=== PATIENT | male | born 1950 | race Caucasian/White ===

== ENCOUNTER 2021-08-09 09:44 | Emergency (ER) | payer OTHER ==
[~2021-08-09] VITALS: Ht 172.7 cm; Wt 104.3 kg
[2021-08-09 11:14] LABS: BASOPHILS ABSOLUTE AUTO 0.02 K/mm3 (0.00-0.23); BASOPHILS PERCENT AUTO 0 % (0-2); EOSINOPHILS PERCENT AUTO 0 % (0-6); Hematocrit 47.4 % (37.0-53.0); IMMATURE GRAN ABSOLUTE AUTO 0.02 K/mm3 (0.00-0.10); IMMATURE GRAN PERCENT AUTO 0 % (0-1); LYMPHOCYTES PERCENT AUTO 13 % (21-46); MONOCYTES ABSOLUTE AUTO 0.37 K/mm3 (0.16-1.47); MONOCYTES PERCENT AUTO 8 % (4-13); Mean Corpuscular HGB Conc 33.8 g/dL (31.5-36.5); Mean Corpuscular Volume 86 fL (80-100); Mean Platelet Volume 11.2 fL (9.1-12.4); NEUTROPHILS ABSOLUTE AUTO 3.55 K/mm3 (1.96-9.15); NEUTROPHILS PERCENT AUTO 78 % (41-73); Platelet Count 185 K/mm3 (150-400); RDW Coefficient Variation 13.2 % (11.7-14.2); RDW Standard Deviation 41.5 fL (35.1-46.3); Red Blood Cell Count 5.51 M/mm3 (4.30-5.90); White Blood Cell Count 4.56 K/mm3 (4.00-11.30)
[2021-08-09 11:20] LABS: SARS-Cov-2 (COVID-19) PCR, MMC POSITIVE (NEGATIVE)
[2021-08-09 11:38] LABS: Alanine Aminotransfer (ALT/SGP 29 U/L (12-78); Albumin, Blood 3.4 g/dL (3.4-5.0); Albumin/Globulin Ratio 0.9 (0.8-1.8); Alk Phos 71 U/L (50-136); Anion Gap 7 mmol/L (6-16); Aspartate Aminotrans (AST/SGOT 40 U/L (12-37); Bilirubin, Total 0.6 mg/dL (0.1-1.0); Blood Urea Nitrogen 21 mg/dL (8-24); Bun/Creatinine Ratio 16.8 (12.0-20.0); CO2, Blood 23 mmol/L (21-32); Calcium, Blood 8.9 mg/dL (8.5-10.1); Chloride, Blood 106 mmol/L (98-108); Creatinine, Blood 1.25 mg/dL (0.60-1.20); Globulin, Blood 3.9 g/dL (2.2-4.0); Glomerular Filtration Rate 57 (60-); Glucose, Blood 139 mg/dL (70-99); Potassium, Blood 4.9 mmol/L (3.5-5.5); Sodium, Blood 136 mmol/L (136-145); Total Protein, Blood 7.3 g/dL (6.4-8.2); Troponin I <0.015 ng/mL (0.000-0.040)
[2021-08-09] MEDS ORDERED: ONDA4ODT MM (12:43)
[2021-08-11] MEDS ORDERED: PRAV20 PO (23:31)
== END 2021-08-09 13:15 | disposition home or self-care (01) ==
LOC: ER 09:44
PROVIDERS: Physician Assistant
DX: U07.1 COVID-19 (principal); J44.9 Chronic obstructive pulmonary disease, unspecified; I25.10 Atherosclerotic heart disease of native coronary artery without angina pectoris; I10 Essential (primary) hypertension; Z87.891 Personal history of nicotine dependence
CPT/HCPCS: 36415; 71046; 80053; 84484; 85025; 93005; 93010; 96374; 99285-25; J2405; J7030; U0004

== ENCOUNTER 2021-08-11 15:04 | Inpatient (IN) | payer OTHER ==
[~2021-08-11] VITALS: Ht 172.7 cm; Wt 108.3 kg
[~2021-08-11 15:04] MED LIST: ONDA4ODT MM
[2021-08-11 16:14] LABS: BASOPHILS ABSOLUTE AUTO 0.01 K/mm3 (0.00-0.23); BASOPHILS PERCENT AUTO 0 % (0-2); EOSINOPHILS PERCENT AUTO 0 % (0-6); Hematocrit 43.7 % (37.0-53.0); Hemoglobin 14.8 g/dL (13.5-17.5); IMMATURE GRAN ABSOLUTE AUTO 0.02 K/mm3 (0.00-0.10); IMMATURE GRAN PERCENT AUTO 0 % (0-1); LYMPHOCYTES ABSOLUTE AUTO 0.37 K/mm3 (0.84-5.20); LYMPHOCYTES PERCENT AUTO 8 % (21-46); MONOCYTES PERCENT AUTO 7 % (4-13); Mean Corpuscular HGB 29.1 pg (26.0-34.0); Mean Corpuscular HGB Conc 33.9 g/dL (31.5-36.5); Mean Corpuscular Volume 86 fL (80-100); Mean Platelet Volume 11.1 fL (9.1-12.4); NEUTROPHILS ABSOLUTE AUTO 3.86 K/mm3 (1.96-9.15); NEUTROPHILS PERCENT AUTO 85 % (41-73); Platelet Count 191 K/mm3 (150-400); RDW Coefficient Variation 13.2 % (11.7-14.2); RDW Standard Deviation 41.3 fL (35.1-46.3); Red Blood Cell Count 5.08 M/mm3 (4.30-5.90); White Blood Cell Count 4.56 K/mm3 (4.00-11.30)
[2021-08-11 16:29] LABS: International Normalized Ratio 0.98; Prothrombin Time Results 10.3 Sec (9.7-11.5)
[2021-08-11 16:43] LABS: Alanine Aminotransfer (ALT/SGP 23 U/L (12-78); Albumin, Blood 2.8 g/dL (3.4-5.0); Albumin/Globulin Ratio 0.8 (0.8-1.8); Alk Phos 72 U/L (50-136); Anion Gap 8 mmol/L (6-16); Aspartate Aminotrans (AST/SGOT 38 U/L (12-37); Bilirubin, Total 0.5 mg/dL (0.1-1.0); Blood Urea Nitrogen 24 mg/dL (8-24); Bun/Creatinine Ratio 20.9 (12.0-20.0); CO2, Blood 23 mmol/L (21-32); Calcium, Blood 8.6 mg/dL (8.5-10.1); Chloride, Blood 106 mmol/L (98-108); Creatinine, Blood 1.15 mg/dL (0.60-1.20); Globulin, Blood 3.7 g/dL (2.2-4.0); Glomerular Filtration Rate >60 (60-); Glucose, Blood 145 mg/dL (70-99); Potassium, Blood 4.4 mmol/L (3.5-5.5); Sodium, Blood 137 mmol/L (136-145); Total Protein, Blood 6.5 g/dL (6.4-8.2); Troponin I <0.015 ng/mL (0.000-0.040)
[2021-08-11 17:49] LABS: Base Excess Venous -1.2 mmol/L; Bicarbonate Venous 23.3 mmol/L (24.0-30.0); PCO2 Venous 40.7 mmHg (38-42); pH Blood Venous 7.38 (7.34-7.37)
[2021-08-11 21:46] LABS: SARS-Cov-2 (COVID-19) PCR, MMC POSITIVE (NEGATIVE)
[2021-08-11] MEDS ORDERED: PANT40 PO (21:49)
[2021-08-11] MEDS ORDERED: PRAVASTATIN SOD40 MG PO (23:31)
[2021-08-11] MEDS ORDERED: ASPI81CH PO (23:31)
[2021-08-11] MEDS ORDERED: VITAMIN D5000 UNIT PO (23:32)
[2021-08-11] MEDS ORDERED: ASCO500 PO (23:33)
[2021-08-11] MEDS ORDERED: AZIT250 PO (23:34)
[2021-08-11] MEDS ORDERED: VERA240ER PO (23:35)
[2021-08-11] MEDS ORDERED: DICL75ER PO (23:35)
[2021-08-11] MEDS ORDERED: CLOP75 PO (23:36)
[2021-08-12 03:49] LABS: BASOPHILS ABSOLUTE AUTO 0.01 K/mm3 (0.00-0.23); BASOPHILS PERCENT AUTO 0 % (0-2); EOSINOPHILS ABSOLUTE AUTO 0.01 K/mm3 (0.00-0.68); EOSINOPHILS PERCENT AUTO 0 % (0-6); Hematocrit 44.4 % (37.0-53.0); Hemoglobin 14.8 g/dL (13.5-17.5); IMMATURE GRAN ABSOLUTE AUTO 0.01 K/mm3 (0.00-0.10); IMMATURE GRAN PERCENT AUTO 0 % (0-1); LYMPHOCYTES ABSOLUTE AUTO 0.51 K/mm3 (0.84-5.20); LYMPHOCYTES PERCENT AUTO 12 % (21-46); MONOCYTES ABSOLUTE AUTO 0.33 K/mm3 (0.16-1.47); MONOCYTES PERCENT AUTO 8 % (4-13); Mean Corpuscular HGB 28.8 pg (26.0-34.0); Mean Corpuscular HGB Conc 33.3 g/dL (31.5-36.5); Mean Corpuscular Volume 87 fL (80-100); Mean Platelet Volume 10.9 fL (9.1-12.4); NEUTROPHILS ABSOLUTE AUTO 3.38 K/mm3 (1.96-9.15); NEUTROPHILS PERCENT AUTO 80 % (41-73); Platelet Count 211 K/mm3 (150-400); RDW Coefficient Variation 13.3 % (11.7-14.2); RDW Standard Deviation 42.9 fL (35.1-46.3); Red Blood Cell Count 5.13 M/mm3 (4.30-5.90); White Blood Cell Count 4.25 K/mm3 (4.00-11.30)
[2021-08-12 04:06] LABS: Anion Gap 7 mmol/L (6-16); Blood Urea Nitrogen 21 mg/dL (8-24); Bun/Creatinine Ratio 22.1 (12.0-20.0); CO2, Blood 23 mmol/L (21-32); Calcium, Blood 9.1 mg/dL (8.5-10.1); Chloride, Blood 106 mmol/L (98-108); Creatinine, Blood 0.95 mg/dL (0.60-1.20); Glomerular Filtration Rate >60 (60-); Glucose, Blood 127 mg/dL (70-99); Potassium, Blood 4.5 mmol/L (3.5-5.5); Sodium, Blood 136 mmol/L (136-145)
--- NOTE | 2021-08-12 06:27 | NUR ---
pt is able to transition to HFNA with 60L 85%. o2 sat 93%. HTN noted this morning. restarting home antihypertensives.
--- NOTE | 2021-08-12 11:11 | NUR ---
PT ON HEATED HIGHFLOW LEAD CARPENTER AT SETTINGS 60LITERS 80 FIO2. PT HAS BEEN SATING 87-90 MAINLY.
--- NOTE | 2021-08-12 12:04 | NUR ---
PT DESATURATION TO LOW TO MID 80S WHEN SITTING AT SIDE OF BED. HAD PT LAY DOWN AND TITRATED THE [employer] UP TO 60l 85% AND STILL SATING ONLY 88%, RT PAGED.
--- NOTE | 2021-08-12 12:12 | NUR ---
RT ASSESSED PT, PT STILL ON HEATED HIGHFLOW MASTER OCEAN 60L 85%FIO2 SATING 90-93. RT REMOVED SOME CONDENSATIN ACCUMULATED IN THE TUBING.
--- NOTE | 2021-08-12 15:58 | NUR ---
Pt expressed interest in changing code status after meeting with lead injection mold technician and son. Dr. Rodrigez was called and will discuss with pt later today and potentially change orders.
--- NOTE | 2021-08-12 17:35 | NUR ---
SHIFT NOTE: Pt is A&O, pleasant with cares. Pt is currently on the heated highflow human services program specialist system with 60L and 85% FIO2, sating 88-92 mainly. Earlier in the day pt was desaturating into low to mid 80s and was titrated up to 85% FIO2. Pt was educated on the importance of repositioning Q2hrs and trying to prone as best as possible. Pt is unable to prone completely, but does a semi-prone alternating sides. O2 sats are 90-95 when in the semi-prone position with any movement pt quickly drops to 80s. BP elevated in AM, scheduled meds given with good effect. Dexamethason given per orders. Pt expressed desire to switch code status. spoke with pt and decided he would like DNR, but would be ok with intubation if needed. Son is his POA and was here today with account advisor setting up will. COVID postitive precautions maintained. Pt using urinal at bedside. Tele:
--- NOTE | 2021-08-13 09:15 | NUR ---
PT BACK IN BED. PT EXPRESSED DIZZINESS WHEN STANDING DURING ASSESSMENT. ENCOURAGED PT TO USE CALL LIGHT BEFORE STANDING TO USE URINAL. PT EXPRESSES UNDERSTANDING.
--- NOTE | 2021-08-13 17:52 | NUR ---
SHIFT SUMMARY PT REMAINS ON AIRVO 60L FIO2 85%. PT CONTINUES TO DEEP BREATH AND MONITOR O2 SATURATIONS. PT A&OX4, COOPERATIVE WITH CARE. PT SAT ON EDGE OF BED SEVERAL TIMES THROUGHOUT THE SHIFT WITH MINIMAL DYSPNEA. PT REPOSITIONS SELF INDEPENDENTLY AND DENIES DIZZINESS. PT USES URINAL INDEPENDENTLY. PT HYPERTENSIVE, MEDICATED PER EMAR. PT DENIES PAIN OR DISCOMFORT. ATTEMPTING TO EAT DINNER TRAY NOW. WILL REPORT TO ONCOMING RN.
--- NOTE | 2021-08-14 04:18 | NUR ---
SHIFT SUMMARY PATIENT A&Ox4 THIS SHIFT. ABLE TO MAKE NEEDS KNOWN. USING CALL LIGHT APPROPRIATELY. VSS. HIGH FLOW NC IN PLACE, SETTINGS AT 60L 85% FIO2. OXYGEN SATURATION ABOVE 90%. PATIENT SAT UP TO SIDE OF BED INDEPENDENTLY THROUGHOUT NIGHT. USES URINAL AT BEDSIDE. DENIES PAIN OR DISCOMFORT. NO OTHER SIGNIFICANT CHANGES THIS SHIFT.
[2021-08-14 04:22] LABS: BASOPHILS ABSOLUTE AUTO 0.01 K/mm3 (0.00-0.23); BASOPHILS PERCENT AUTO 0 % (0-2); EOSINOPHILS PERCENT AUTO 0 % (0-6); Hematocrit 44.7 % (37.0-53.0); Hemoglobin 15.2 g/dL (13.5-17.5); IMMATURE GRAN ABSOLUTE AUTO 0.04 K/mm3 (0.00-0.10); IMMATURE GRAN PERCENT AUTO 0 % (0-1); LYMPHOCYTES ABSOLUTE AUTO 0.76 K/mm3 (0.84-5.20); LYMPHOCYTES PERCENT AUTO 8 % (21-46); MONOCYTES ABSOLUTE AUTO 1.02 K/mm3 (0.16-1.47); MONOCYTES PERCENT AUTO 11 % (4-13); Mean Corpuscular HGB 28.9 pg (26.0-34.0); Mean Corpuscular Volume 85 fL (80-100); Mean Platelet Volume 10.6 fL (9.1-12.4); NEUTROPHILS ABSOLUTE AUTO 7.56 K/mm3 (1.96-9.15); NEUTROPHILS PERCENT AUTO 81 % (41-73); Platelet Count 356 K/mm3 (150-400); Red Blood Cell Count 5.26 M/mm3 (4.30-5.90); White Blood Cell Count 9.39 K/mm3 (4.00-11.30)
[2021-08-14 04:39] LABS: Anion Gap 6 mmol/L (6-16); Blood Urea Nitrogen 25 mg/dL (8-24); CO2, Blood 26 mmol/L (21-32); Calcium, Blood 8.7 mg/dL (8.5-10.1); Chloride, Blood 103 mmol/L (98-108); Creatinine, Blood 0.76 mg/dL (0.60-1.20); Glomerular Filtration Rate >60 (60-); Glucose, Blood 171 mg/dL (70-99); Potassium, Blood 4.6 mmol/L (3.5-5.5); Sodium, Blood 135 mmol/L (136-145)
--- NOTE | 2021-08-14 11:25 | NUR ---
Pt states he is feeling okay, unable to prone due to his large abdomen, but states he is frequently moving from side to side, and was also getting up to a chair for a sponge bath and to sit in the recliner today with LASER ENGRAVER assistance. AirVo 60 l/min and 85% fio2 oxygen delivery this morning. spo2 drops to 85% briefly with activity, improved to 90% or greater with a couple minutes of rest. LUng sounds clear upper lobes, inspiratory crackles noted in the bases. States appetite is poor because all food and drink are so foul-tasting. STates that he has not eaten "for weeks".
--- NOTE | 2021-08-14 18:37 | NUR ---
Pt states that he continues to have no desire to eat because food just tastes bad. He spoke with the dietitian on the phone this afternoon to problem solve his difficulties with eating. He was encouraged to mobilize, which he has been attempting to do as tolerated. This evening he c/o difficulty breathing. Upon assessment he was sitting up on the side of the bed, with unchanged Airvo settings and spo2 90-92%. He stated that he simply feels like his nose is plugged up. AirVo was placed in his mouth, spo2 immediately improved to 96-98%, and he is able to clear out what appears to be dried blood tinged dried secretions from his nares with his fingers, nasal saline spray and qtips.
--- NOTE | 2021-08-15 05:26 | NUR ---
SHIFT SUMMARY PATIENT ALERT AND ORIENTED THROUGHOUT SHIFT. VSS. REMAINS ON AIRVO AT 55L 85% FIO2, OXYGEN SATURATION ABOVE 90%. PATIENT SITS UP TO SIDE OF BED AND USE URINAL INDEPENDENTLY. USES CALL LIGHT APPROPRIATLEY AND IS ABLE TO MAKE NEEDS KNOWN TO STAFF. ENCOURAGED TO PRONE BUT PATIENT STATES HE CANNOT DUE TO HIS ABDOMEN. NO SIGNIFICANT CHANGES OVER NIGHT. ONLY COMPLAINT IS RASH IN AXILLAE, MEDICATED PER EMAR. DENIES CHEST PAIN OR PRESSURE DURING SHIFT.
--- NOTE | 2021-08-15 17:43 | NUR ---
SHIFT SUMMARY PT ALERT AND ORIENTED. HR HAS BEEN NSR. BP STABLE. O2 SATS HAVE REMAINED ABOVE 90% ON 55L AND 80% VIA HIGH FLOW CANNULA. PT DENIES ANY PAIN. PT COMPLAINS OF DISCOMFORT TO AXILLARY AREA. AREA CLEANED AND MEDICATED PER ORDERS. PT ABLE TO STAND AND VOID USING URINAL. WILL CONTINUE TO MONITOR AND REPORT TO ONCOMING RN. CALL LIGHT IN REACH.
--- NOTE | 2021-08-16 00:17 | NUR ---
POWERGLIDE PATIENT'S RIGHT ARM IV SITE FAILED. OIL SPOT WASHER AT BEDSIDE TRYING TO PLACE POWERGLIDE OR PERIPHERAL IV. UNSUCCESSFUL. ICU CHARGE NURSE AT BEDSIDE TO ATTEMPT POWERGLIDE AND SUCCESSFUL.
--- NOTE | 2021-08-16 05:40 | NUR ---
SHIFT SUMMARY PATIENT ALERT AND ORIENTED THIS SHIFT. VSS. HIGH FLOW NASAL CANNULA REMAINS IN PLACE WITH SETTINGS AT 50L 80% FIO2 WITH OXYGEN SATURATION ABOVE 90%. DENIES PAIN T/O SHIFT. RASH IN ARMPITS CLEANED AND MEDICATED PER EMAR. SITTING UP AT SIDE OF BED USING URINAL INDEPENDENTLY. PATIENT SEEMS MORE FLAT THIS SHIFT. OTHERWISE NO SIGNIFICANT CHANGES TO PATIENT. WILL REPORT TO DAY SHIFT.
--- NOTE | 2021-08-16 18:11 | NUR ---
SHIFT SUMMARY PT ALERT AND ORIENTED X 4. HR STABLE. BP STABLE. OXYGEN SATURATION MAINTAINED ABOVE 90% ON AIRVO AT 55 L AND 80% FIO2. THIS EVENING PT BEGAN TO FEEL SOB. PHYSICIAN AT BEDSIDE, RT AT BEDSIDE. PT NOW ON CPAP, SEE RT SETTINGS. PT ANXIOUS, PHYSICIAN NOTIFIED. MEDICATION ORDERED BY PHYSICIAN. PT DOES NOT WANT MEDICATION FOR ANXIETY AT THIS TIME. SISTER IN[place] TO SEE PT THIS AFTERNOON. PT ABLE TO TURN SELF IN BED NEEDED. PT STATES HE IS ABLE TO EAT BETTER IF MASHED POTATOES AND EXTRA GRAVY ARE ORDERED FOR MEALS. ENCOURAGED PO INTAKE OF FLUIDS AND FOOD. PT ENCOURAGED TO PRONE. NO CP OR PRESSURE. WILL CONT TO MONITOR UNTIL REPORT GIVEN TO NIGHTSHIFT RN.
--- NOTE | 2021-08-17 05:58 | NUR ---
SHIFT SUMMARY PT RESTED WELL THROUGH THE NIGHT SOME. ALERT AND ORIENTED, ABLE TO MAKE NEEDS KNOWN, COOPERATIVE WITH PLAN OF CARE. PT VERY ANXIOUS ABOUT HAVING COVID AND ABOUT WEARING CPAP MASK. ATIVAN GIVEN, SEE EMAR. PT PREFERS TO WEAR AIRVO, BUT PT IS UNABLE TO TOLERATE BEING OFF MASK. SATS DROP TO LOW 80'S WHEN OFF CPAP. TELE READS NSR, NO C/O CHEST PAIN. CPAP IS SET TO PRESSURE SETTING OF 8 AT 80%FIO2. VOIDS TO URINAL, NO BM. VSS. CALL LIGHT WITHIN REACH, BED IN LOWEST POSITION, WILL CONTINUE TO MONITOR.
[2021-08-17 06:46] LABS: BASOPHILS ABSOLUTE AUTO 0.02 K/mm3 (0.00-0.23); BASOPHILS PERCENT AUTO 0 % (0-2); EOSINOPHILS PERCENT AUTO 0 % (0-6); Hematocrit 43.1 % (37.0-53.0); Hemoglobin 14.7 g/dL (13.5-17.5); IMMATURE GRAN ABSOLUTE AUTO 0.17 K/mm3 (0.00-0.10); IMMATURE GRAN PERCENT AUTO 2 % (0-1); LYMPHOCYTES ABSOLUTE AUTO 0.52 K/mm3 (0.84-5.20); LYMPHOCYTES PERCENT AUTO 5 % (21-46); MONOCYTES ABSOLUTE AUTO 0.95 K/mm3 (0.16-1.47); MONOCYTES PERCENT AUTO 9 % (4-13); Mean Corpuscular HGB 29.3 pg (26.0-34.0); Mean Corpuscular HGB Conc 34.1 g/dL (31.5-36.5); Mean Corpuscular Volume 86 fL (80-100); Mean Platelet Volume 10.7 fL (9.1-12.4); NEUTROPHILS ABSOLUTE AUTO 9.57 K/mm3 (1.96-9.15); NEUTROPHILS PERCENT AUTO 85 % (41-73); Platelet Count 407 K/mm3 (150-400); RDW Coefficient Variation 13.2 % (11.7-14.2); RDW Standard Deviation 40.4 fL (35.1-46.3); Red Blood Cell Count 5.02 M/mm3 (4.30-5.90); White Blood Cell Count 11.23 K/mm3 (4.00-11.30)
[2021-08-17 07:07] LABS: Alanine Aminotransfer (ALT/SGP 26 U/L (12-78); Albumin, Blood 2.6 g/dL (3.4-5.0); Albumin/Globulin Ratio 0.7 (0.8-1.8); Alk Phos 72 U/L (50-136); Anion Gap 6 mmol/L (6-16); Aspartate Aminotrans (AST/SGOT 22 U/L (12-37); Bilirubin, Total 0.6 mg/dL (0.1-1.0); Blood Urea Nitrogen 29 mg/dL (8-24); Bun/Creatinine Ratio 38.5 (12.0-20.0); CO2, Blood 25 mmol/L (21-32); Calcium, Blood 8.6 mg/dL (8.5-10.1); Chloride, Blood 104 mmol/L (98-108); Creatinine, Blood 0.75 mg/dL (0.60-1.20); Globulin, Blood 3.6 g/dL (2.2-4.0); Glomerular Filtration Rate >60 (60-); Glucose, Blood 228 mg/dL (70-99); Potassium, Blood 4.9 mmol/L (3.5-5.5); Sodium, Blood 135 mmol/L (136-145); Total Protein, Blood 6.2 g/dL (6.4-8.2)
--- NOTE | 2021-08-17 15:30 | NUR ---
PT TRANSFER SUMMARY: PT CONTINUES A&O, COOPERATIVE WITH CARE, MAINTAINING O2 SATS >92% ON CPAP SETTING AND SR ON MONITOR. PT O2 SATS CONTINUE TO DROP QUICKLY WHEN CPAP MASK REMOVED. PT TOLERATING STANDING AT BEDSIDE TO USE URINAL W/OUT MUCH CHANGE TO O2 SATS. ORAL CARE PROVIDED PRN. FAMILY UPDATED VIA PHONE CALL. PT RECEIVES NEW ROOM ASSIGNMENT IN ICU, REPORT GIVEN TO LISS SHAVER.
--- NOTE | 2021-08-17 19:50 | NUR ---
REPORT RECV'D ASSUMED CARE ASSESSMENT COMPLETE. A&O, LUNGS COARSE BILAT. TOLERATING CPAP. DENIES ANY NEEDS AT THIS TIME.
[2021-08-18 03:29] LABS: BASOPHILS ABSOLUTE AUTO 0.02 K/mm3 (0.00-0.23); BASOPHILS PERCENT AUTO 0 % (0-2); EOSINOPHILS PERCENT AUTO 0 % (0-6); Hemoglobin 14.1 g/dL (13.5-17.5); IMMATURE GRAN PERCENT AUTO 2 % (0-1); LYMPHOCYTES ABSOLUTE AUTO 0.47 K/mm3 (0.84-5.20); LYMPHOCYTES PERCENT AUTO 4 % (21-46); MONOCYTES ABSOLUTE AUTO 0.95 K/mm3 (0.16-1.47); MONOCYTES PERCENT AUTO 8 % (4-13); Mean Corpuscular HGB 29.1 pg (26.0-34.0); Mean Corpuscular HGB Conc 34.4 g/dL (31.5-36.5); Mean Corpuscular Volume 85 fL (80-100); Mean Platelet Volume 10.5 fL (9.1-12.4); NEUTROPHILS PERCENT AUTO 87 % (41-73); Platelet Count 428 K/mm3 (150-400); RDW Coefficient Variation 13.1 % (11.7-14.2); RDW Standard Deviation 39.9 fL (35.1-46.3); Red Blood Cell Count 4.84 M/mm3 (4.30-5.90); White Blood Cell Count 12.34 K/mm3 (4.00-11.30)
[2021-08-18 03:51] LABS: Anion Gap 5 mmol/L (6-16); Blood Urea Nitrogen 29 mg/dL (8-24); Bun/Creatinine Ratio 39.2 (12.0-20.0); CO2, Blood 26 mmol/L (21-32); Calcium, Blood 8.3 mg/dL (8.5-10.1); Chloride, Blood 105 mmol/L (98-108); Creatinine, Blood 0.74 mg/dL (0.60-1.20); Glomerular Filtration Rate >60 (60-); Glucose, Blood 238 mg/dL (70-99); Potassium, Blood 4.7 mmol/L (3.5-5.5); Sodium, Blood 136 mmol/L (136-145)
--- NOTE | 2021-08-18 06:59 | NUR ---
RESTED THROUGH NIGHT. TOLERATED CPAP WITHOUT INCIDENT. NO DISTRESS AT THIS TIME
--- NOTE | 2021-08-18 19:50 | NUR ---
ASSUMED CARE: ASSESSMENT COMPLETE. TOLERATING BIPAP, REQUEST SOMETHING TO HELP SLEEP TONIGHT. ADVISED WILL GIVE WITH HS MEDS. CONDOM CATH IN PLACE.
[2021-08-19 03:54] LABS: BASOPHILS ABSOLUTE AUTO 0.02 K/mm3 (0.00-0.23); BASOPHILS PERCENT AUTO 0 % (0-2); EOSINOPHILS PERCENT AUTO 0 % (0-6); Hematocrit 40.7 % (37.0-53.0); IMMATURE GRAN ABSOLUTE AUTO 0.26 K/mm3 (0.00-0.10); IMMATURE GRAN PERCENT AUTO 2 % (0-1); LYMPHOCYTES ABSOLUTE AUTO 0.43 K/mm3 (0.84-5.20); LYMPHOCYTES PERCENT AUTO 3 % (21-46); MONOCYTES ABSOLUTE AUTO 0.77 K/mm3 (0.16-1.47); MONOCYTES PERCENT AUTO 6 % (4-13); Mean Corpuscular HGB 29.7 pg (26.0-34.0); Mean Corpuscular HGB Conc 34.4 g/dL (31.5-36.5); Mean Corpuscular Volume 86 fL (80-100); Mean Platelet Volume 10.8 fL (9.1-12.4); NEUTROPHILS ABSOLUTE AUTO 11.02 K/mm3 (1.96-9.15); NEUTROPHILS PERCENT AUTO 88 % (41-73); Platelet Count 427 K/mm3 (150-400); RDW Coefficient Variation 13.2 % (11.7-14.2); RDW Standard Deviation 40.6 fL (35.1-46.3); Red Blood Cell Count 4.72 M/mm3 (4.30-5.90)
[2021-08-19 04:18] LABS: Anion Gap 6 mmol/L (6-16); Blood Urea Nitrogen 29 mg/dL (8-24); Bun/Creatinine Ratio 39.8 (12.0-20.0); CO2, Blood 24 mmol/L (21-32); Calcium, Blood 8.9 mg/dL (8.5-10.1); Chloride, Blood 105 mmol/L (98-108); Creatinine, Blood 0.73 mg/dL (0.60-1.20); Glomerular Filtration Rate >60 (60-); Glucose, Blood 251 mg/dL (70-99); Magnesium, Blood 2.5 mg/dL (1.6-2.4); Phosphorus, Blood 2.9 mg/dL (2.5-4.9); Potassium, Blood 4.8 mmol/L (3.5-5.5); Sodium, Blood 135 mmol/L (136-145)
--- NOTE | 2021-08-19 06:24 | NUR ---
RESTED THROUGH OUT NIGHT. SATS REMAINED IN LOW 90'S WITH CPAP 8 FIO2 60%. WILL DESAT QUICKLY WHEN MASK REMOVED FOR DRINKS AND ORAL CARE. RECOVERS QUICKLY ONCE REAPLLIED. WILL NOT TURN SELF, NURSE HAS TO VERBAL ENCOURAGE TO TURN. WILL NOT STAY ON SIDE FOR VERY LONG AT A TIME. DENIES NEEDS THIS AM. ATIVAN GIVEN NEEDED FOR ANXIETY
--- NOTE | 2021-08-19 17:25 | NUR ---
AOx4, denies P/N/V, complained some anxiety given 1mg ativan, flat affect, lungs dim/subtle coarse, RR low 20s, able to tolerate HI-FLOW all day as low as 50L/65%, encourage CPAP at night, HR 50-70s, 140-150 SBP, hypoactive bowels, LBM 11/8, denied supository intervention, little appetite 25-35% meals, condom cath continues hanane UOP.
--- NOTE | 2021-08-19 20:00 | NUR ---
ASSUMED CARE AFTER REPORT RECV'D ASSESSMENT COMPLETE. SATS IN MID TO HIGH 80'S. ADVISED WILL [facility] TECHNICAL LEAD SENIOR DEVELOPER TO BIPAP ONCE PM MEDS GIVEN. REQUEST TO TAKE ATIVAN PRIOR TO BIPAP PLACEMENT. LUNGS DIMINISHED WITH EXP WHEEZES BILAT.
[2021-08-20 03:36] LABS: BASOPHILS ABSOLUTE AUTO 0.01 K/mm3 (0.00-0.23); BASOPHILS PERCENT AUTO 0 % (0-2); EOSINOPHILS PERCENT AUTO 0 % (0-6); Hematocrit 40.5 % (37.0-53.0); Hemoglobin 13.8 g/dL (13.5-17.5); IMMATURE GRAN ABSOLUTE AUTO 0.31 K/mm3 (0.00-0.10); IMMATURE GRAN PERCENT AUTO 3 % (0-1); LYMPHOCYTES ABSOLUTE AUTO 0.52 K/mm3 (0.84-5.20); LYMPHOCYTES PERCENT AUTO 5 % (21-46); MONOCYTES ABSOLUTE AUTO 0.65 K/mm3 (0.16-1.47); MONOCYTES PERCENT AUTO 7 % (4-13); Mean Corpuscular HGB 28.8 pg (26.0-34.0); Mean Corpuscular HGB Conc 34.1 g/dL (31.5-36.5); Mean Corpuscular Volume 85 fL (80-100); Mean Platelet Volume 10.8 fL (9.1-12.4); NEUTROPHILS ABSOLUTE AUTO 8.42 K/mm3 (1.96-9.15); NEUTROPHILS PERCENT AUTO 85 % (41-73); Platelet Count 372 K/mm3 (150-400); RDW Coefficient Variation 13.2 % (11.7-14.2); RDW Standard Deviation 40.4 fL (35.1-46.3); Red Blood Cell Count 4.79 M/mm3 (4.30-5.90); White Blood Cell Count 9.91 K/mm3 (4.00-11.30)
[2021-08-20 03:47] LABS: Albumin, Blood 2.4 g/dL (3.4-5.0); Anion Gap 6 mmol/L (6-16); Blood Urea Nitrogen 26 mg/dL (8-24); Bun/Creatinine Ratio 38.7 (12.0-20.0); CO2, Blood 23 mmol/L (21-32); Calcium, Blood 8.5 mg/dL (8.5-10.1); Chloride, Blood 105 mmol/L (98-108); Creatinine, Blood 0.67 mg/dL (0.60-1.20); Glomerular Filtration Rate >60 (60-); Glucose, Blood 237 mg/dL (70-99); Phosphorus, Blood 2.9 mg/dL (2.5-4.9); Potassium, Blood 4.9 mmol/L (3.5-5.5); Sodium, Blood 134 mmol/L (136-145)
--- NOTE | 2021-08-20 17:51 | NUR ---
AOx4, denies P/N/V, flat affect, appetite increasing 50% this shift, HTN issues 160/170s SBP, hydralazine 10mg x2 given with some affect, new increased PRN hydralazine order placed, +2 pulses, HR 60s, when sleeping bradycardia 50s, dim lungs with some coarsness bases, tachypnea 20s, SOB with exertion and desaturations low 80s, about 1 minute to recover back to 90s, airvo maintained whole day as low as 50L/60%, some anxiety, given 1mg ativan, bowels more audible this shift, LBM 08/10 pt aware but denies further interventions such as biscodyl, PT work with patient improved strength from previous day, UOP condom cath adequate hanane.
[2021-08-21 03:50] LABS: BASOPHILS ABSOLUTE AUTO 0.02 K/mm3 (0.00-0.23); BASOPHILS PERCENT AUTO 0 % (0-2); EOSINOPHILS PERCENT AUTO 0 % (0-6); Hemoglobin 13.3 g/dL (13.5-17.5); IMMATURE GRAN ABSOLUTE AUTO 0.28 K/mm3 (0.00-0.10); IMMATURE GRAN PERCENT AUTO 3 % (0-1); LYMPHOCYTES ABSOLUTE AUTO 0.59 K/mm3 (0.84-5.20); LYMPHOCYTES PERCENT AUTO 5 % (21-46); MONOCYTES ABSOLUTE AUTO 0.76 K/mm3 (0.16-1.47); MONOCYTES PERCENT AUTO 7 % (4-13); Mean Corpuscular HGB 29.4 pg (26.0-34.0); Mean Corpuscular HGB Conc 34.1 g/dL (31.5-36.5); Mean Corpuscular Volume 86 fL (80-100); Mean Platelet Volume 10.8 fL (9.1-12.4); NEUTROPHILS ABSOLUTE AUTO 9.54 K/mm3 (1.96-9.15); NEUTROPHILS PERCENT AUTO 85 % (41-73); Platelet Count 373 K/mm3 (150-400); RDW Coefficient Variation 13.1 % (11.7-14.2); Red Blood Cell Count 4.52 M/mm3 (4.30-5.90); White Blood Cell Count 11.19 K/mm3 (4.00-11.30)
[2021-08-21 04:09] LABS: Albumin, Blood 2.2 g/dL (3.4-5.0); Anion Gap 4 mmol/L (6-16); Blood Urea Nitrogen 26 mg/dL (8-24); Bun/Creatinine Ratio 35.9 (12.0-20.0); CO2, Blood 24 mmol/L (21-32); Calcium, Blood 8.6 mg/dL (8.5-10.1); Chloride, Blood 105 mmol/L (98-108); Creatinine, Blood 0.73 mg/dL (0.60-1.20); Glomerular Filtration Rate >60 (60-); Glucose, Blood 212 mg/dL (70-99); Phosphorus, Blood 2.9 mg/dL (2.5-4.9); Potassium, Blood 4.9 mmol/L (3.5-5.5); Sodium, Blood 133 mmol/L (136-145)
--- NOTE | 2021-08-21 10:31 | NUR ---
0800 Pt recieved on bed AAOX3 on High flow NC, saturating well. Pt able to move all extremities but is weak. Pt has condom cath draining adequate ouput. Report given to Nancy Monroy RN. Pt afebrile, VSS and in no acute distress. Pt transfered to room PCU 16.
--- NOTE | 2021-08-21 17:50 | NUR ---
SHIFT SUMMARY ASSUMED CARE FOR INHOUSE TRANSFER FROM ICU. A/A/OX4, AIRVO AT 85% 55L. RESTING SATS 92-94% DESATURATION TO 85% WITH EXERTION BUT RECOVERS WITHIN 5 MINS. INSULIN COVERAGE PER EMAR DURING SHIFT. CONDOM CATH IN PLACE DRAINING STRAW COLORED URINE. REPOSITIONS SELF IN BED NEEDED. NO ACUTE MEDICAL CHANGES DURING SHIFT. WILL CONTINUE TO MONITOR AND TREAT UNTIL CHANGE OF SHIFT.
--- NOTE | 2021-08-21 21:06 | NUR ---
TOOK OVER CARE AT 1845 PATIENT IS ALERT AND ORIENTATED ABLE TO MAKE NEEDS KNOWN, CALL LIGHT WITHIN REACH, CALLS APPROPRIATELY, CONDOM CATH IN PLACE, LUNGS ARE CLEAR WITH SLIGHT COARSE CRACKLES AT BASES, ON HFNC 55L 85% SATURATIONS 91-95% RR 17-21. ABDOMEN IS HARD TENDER WITH PURPLISH BRUISING NOTED FOR BLOOD THINNER, PATIENT IS ABLE TO INDEPENDENTLY MAKE MICRO SHIFTING IN BED, BEDDING WAS STRAIGHTED AND NIGHT CARE PERFORMED, DENTURES ARE IN A CUP CLEANING AT BEDSIDE, CELL PHONE ON BLOW PIT OPERATOR, VITAL SIGNS OBTAINED AND ASSESSMENT COMPLETED, WCTM UNTIL SHIFT CHANGE.
[2021-08-22 04:00] LABS: BASOPHILS ABSOLUTE AUTO 0.03 K/mm3 (0.00-0.23); BASOPHILS PERCENT AUTO 0 % (0-2); EOSINOPHILS PERCENT AUTO 0 % (0-6); Hematocrit 39.4 % (37.0-53.0); Hemoglobin 13.6 g/dL (13.5-17.5); IMMATURE GRAN ABSOLUTE AUTO 0.43 K/mm3 (0.00-0.10); IMMATURE GRAN PERCENT AUTO 5 % (0-1); LYMPHOCYTES ABSOLUTE AUTO 0.48 K/mm3 (0.84-5.20); LYMPHOCYTES PERCENT AUTO 5 % (21-46); MONOCYTES ABSOLUTE AUTO 0.62 K/mm3 (0.16-1.47); MONOCYTES PERCENT AUTO 7 % (4-13); Mean Corpuscular HGB 28.9 pg (26.0-34.0); Mean Corpuscular HGB Conc 34.5 g/dL (31.5-36.5); Mean Corpuscular Volume 84 fL (80-100); Mean Platelet Volume 11.2 fL (9.1-12.4); NEUTROPHILS ABSOLUTE AUTO 7.96 K/mm3 (1.96-9.15); NEUTROPHILS PERCENT AUTO 84 % (41-73); Platelet Count 350 K/mm3 (150-400); RDW Standard Deviation 39.2 fL (35.1-46.3); White Blood Cell Count 9.52 K/mm3 (4.00-11.30)
[2021-08-22 04:25] LABS: Albumin, Blood 2.4 g/dL (3.4-5.0); Anion Gap 6 mmol/L (6-16); Blood Urea Nitrogen 25 mg/dL (8-24); Bun/Creatinine Ratio 37.4 (12.0-20.0); CO2, Blood 23 mmol/L (21-32); Calcium, Blood 8.8 mg/dL (8.5-10.1); Chloride, Blood 105 mmol/L (98-108); Creatinine, Blood 0.67 mg/dL (0.60-1.20); Glomerular Filtration Rate >60 (60-); Glucose, Blood 243 mg/dL (70-99); Phosphorus, Blood 3.2 mg/dL (2.5-4.9); Sodium, Blood 134 mmol/L (136-145)
[2021-08-22 05:19] LABS: BASOPHILS PERCENT MAN 0 % (0-2); EOSINOPHILS PERCENT MAN 0 % (0-6); LYMPHOCYTES ABSOLUTE MAN 0.28 K/mm3 (0.84-5.20); LYMPHOCYTES PERCENT MAN 3 % (21-46); METAMYELOCYTE ABSOLUTE MAN 0.19 K/mm3 (0.00-0.00); METAMYELOCYTE PERCENT MAN 2 % (0-0); MONOCYTES ABSOLUTE MAN 0.85 K/mm3 (0.16-1.47); MONOCYTES PERCENT MAN 9 % (4-13); NEUTROPHILS ABSOLUTE MAN 8.18 K/mm3 (1.96-9.15); SEG NEUTROPHILS PERCENT MAN 86 % (41-73); TOTAL CELLS COUNTED 100
--- NOTE | 2021-08-22 18:01 | NUR ---
SHIFT SUMMARY; ASSUMED CARE AT 0700, REPORT FROM LISS ALBERTO. A/A/OX4. AIRVO AT 55L 85%. UP TO RECLINER DURING SHIFT. BED BATH AND LINEN CHANGE. ORAL CARE AND DENTURE CARE PROVIDED. INSULIN COVERAGE PER EMAR. SATS 92-94% DECREASING TO 85% WITH EXERTION AND RECOVERY TIME OF LESS THAN [address] IN [address] DRAINING CLEAR URINE. NO ACUTE MEDICAL CHANGES DURING SHIFT. WILL CONTINUE TO MONITOR AND TREAT UNTIL CHANGE OF SHIFT.
[2021-08-23 05:40] LABS: BASOPHILS ABSOLUTE AUTO 0.03 K/mm3 (0.00-0.23); BASOPHILS PERCENT AUTO 0 % (0-2); EOSINOPHILS ABSOLUTE AUTO 0.01 K/mm3 (0.00-0.68); EOSINOPHILS PERCENT AUTO 0 % (0-6); Hematocrit 39.6 % (37.0-53.0); Hemoglobin 13.8 g/dL (13.5-17.5); IMMATURE GRAN ABSOLUTE AUTO 0.41 K/mm3 (0.00-0.10); IMMATURE GRAN PERCENT AUTO 3 % (0-1); LYMPHOCYTES ABSOLUTE AUTO 0.81 K/mm3 (0.84-5.20); LYMPHOCYTES PERCENT AUTO 6 % (21-46); MONOCYTES ABSOLUTE AUTO 1.04 K/mm3 (0.16-1.47); MONOCYTES PERCENT AUTO 8 % (4-13); Mean Corpuscular HGB 28.8 pg (26.0-34.0); Mean Corpuscular HGB Conc 34.8 g/dL (31.5-36.5); Mean Corpuscular Volume 83 fL (80-100); Mean Platelet Volume 11.2 fL (9.1-12.4); NEUTROPHILS ABSOLUTE AUTO 11.09 K/mm3 (1.96-9.15); NEUTROPHILS PERCENT AUTO 83 % (41-73); Platelet Count 372 K/mm3 (150-400); RDW Coefficient Variation 13.1 % (11.7-14.2); RDW Standard Deviation 39.3 fL (35.1-46.3); White Blood Cell Count 13.39 K/mm3 (4.00-11.30)
--- NOTE | 2021-08-23 06:08 | NUR ---
SHIFT SUMMARY: PT HAD FAIR SHIFT, C/O LACK OF SLEEP AND PAIN RELATEED TO ABD HEMATOMA, DRY MUCOUS MEMBRANES BECAUSE OF HI FELIPE 02. VITAL SIGNS STABLE, A BIT HYPERTENSIVE AND PRN DOSE OF APRESOLINE GIVEN. REMAINS ON 55L/85% VIA HEATED HI-FELIPE DELIVERY SYSTEM. BECOMES SOB WITH DECREASING SATS WITH ANY PHYSICAL ACTIVITY, SR ON TELE, LEFT UPPER ARM PIWER CLIDE NOT ADVANCED ALL THE WAY AND CRN EVALUATED LINE. BED LOCKED AND LOW, CALL SCOTT IN REACH. LISS PRO
[2021-08-23 06:15] LABS: Albumin, Blood 2.5 g/dL (3.4-5.0); Anion Gap 9 mmol/L (6-16); Blood Urea Nitrogen 26 mg/dL (8-24); Bun/Creatinine Ratio 38.9 (12.0-20.0); CO2, Blood 22 mmol/L (21-32); Calcium, Blood 8.9 mg/dL (8.5-10.1); Chloride, Blood 105 mmol/L (98-108); Creatinine, Blood 0.67 mg/dL (0.60-1.20); Glomerular Filtration Rate >60 (60-); Glucose, Blood 197 mg/dL (70-99); Phosphorus, Blood 2.7 mg/dL (2.5-4.9); Potassium, Blood 5.1 mmol/L (3.5-5.5); Sodium, Blood 136 mmol/L (136-145)
--- NOTE | 2021-08-23 18:08 | NUR ---
SHIFT SUMMARY; ASSUMED CARE AT 0700. A/A/OX4. AIR VO DECREASED DURING DAY BY RT TO 50L 70%. UP TO BEDSIDE COMMODE WITH NO BM DURING SHIFT. SATS DECREASED TO 86% WITH RECOVERY TO 95% WITHIN A FEW MINUTES WITH EXERTION. INSULIN COVERAGE PER EMAR. REPOSITIONS SELF IN BED NEEDED. HEMATOMA TO ABD OUTLINED YESTERDAY, NO VISIBLE SPREAD DURING SHIFT. OFFERED HEATING PAD TO AREA, PT DECLINED. STATES MUCH LESS PAIN TO AREA TODAY VS LAST NIGHT. NO ACUTE MEDICAL CHANGES DURING SHIFT. WILL CONTINUE TO MONITOR AND TREAT UNTIL CHANGE OF SHIFT.
[2021-08-24 03:58] LABS: BASOPHILS ABSOLUTE AUTO 0.03 K/mm3 (0.00-0.23); BASOPHILS PERCENT AUTO 0 % (0-2); EOSINOPHILS ABSOLUTE AUTO 0.03 K/mm3 (0.00-0.68); EOSINOPHILS PERCENT AUTO 0 % (0-6); Hematocrit 36.7 % (37.0-53.0); Hemoglobin 12.6 g/dL (13.5-17.5); IMMATURE GRAN ABSOLUTE AUTO 0.29 K/mm3 (0.00-0.10); IMMATURE GRAN PERCENT AUTO 2 % (0-1); LYMPHOCYTES ABSOLUTE AUTO 0.79 K/mm3 (0.84-5.20); LYMPHOCYTES PERCENT AUTO 6 % (21-46); MONOCYTES ABSOLUTE AUTO 0.81 K/mm3 (0.16-1.47); MONOCYTES PERCENT AUTO 6 % (4-13); Mean Corpuscular HGB 29.2 pg (26.0-34.0); Mean Corpuscular HGB Conc 34.3 g/dL (31.5-36.5); Mean Corpuscular Volume 85 fL (80-100); Mean Platelet Volume 11.4 fL (9.1-12.4); NEUTROPHILS ABSOLUTE AUTO 11.07 K/mm3 (1.96-9.15); NEUTROPHILS PERCENT AUTO 85 % (41-73); Platelet Count 304 K/mm3 (150-400); RDW Coefficient Variation 13.4 % (11.7-14.2); RDW Standard Deviation 41.3 fL (35.1-46.3); Red Blood Cell Count 4.32 M/mm3 (4.30-5.90); White Blood Cell Count 13.02 K/mm3 (4.00-11.30)
[2021-08-24 04:34] LABS: Albumin, Blood 2.2 g/dL (3.4-5.0); Anion Gap 5 mmol/L (6-16); Blood Urea Nitrogen 31 mg/dL (8-24); Bun/Creatinine Ratio 39.3 (12.0-20.0); CO2, Blood 25 mmol/L (21-32); Calcium, Blood 8.7 mg/dL (8.5-10.1); Chloride, Blood 105 mmol/L (98-108); Creatinine, Blood 0.79 mg/dL (0.60-1.20); Glomerular Filtration Rate >60 (60-); Glucose, Blood 193 mg/dL (70-99); Phosphorus, Blood 3.4 mg/dL (2.5-4.9); Potassium, Blood 5.2 mmol/L (3.5-5.5); Sodium, Blood 135 mmol/L (136-145)
--- NOTE | 2021-08-24 05:53 | NUR ---
SHIFT SUMMARY: PT STATES HE HAD A MORE RESTFULL NIGHT WITH THE ADMIN OF MELATONIN AT BEDTIME LAST NIGHT. TELE SHOWS SB IN THE 50'S, VSS, NO C/O PAIN OR DISCOMFORT, ACTIVITY LIMITED BY RESP STATUS, REMAINS ON HI FELIPE HEATED 02, ABLE TO VERBALIZE NEEDS, BED LOCKED AND LOW, CALL LIGHT IN REACH. LISS CORONA
--- NOTE | 2021-08-24 08:00 | NUR ---
INITIAL ASSESSMENT: Assumed care of patient, report recieved from [facility] RN. Patient is alert and oriented. Patient denies pain at this time. NSR in the 60s. LS Dim in the bases, biox 94% on AIRVO 50l 74% FIO2, pt denies PC. BT+. Patient has large hematoma to left abd, it is very tender. Patient states he is unable to prone due to this large hematoma being so tender. He states he has been really good about repositioning himself from side to side. PPP. VSS. AM meds given whole with water, patient denies other needs at this time. Call light in reach. Will continue to monitor.
--- NOTE | 2021-08-24 12:00 | NUR ---
Update: Patient is OOB to the chair and has been for about an hour. Initial assessment unchanged. VSS. Patient given bed bath and then assisted back to bed, pt desaturated down to 85% and then recovered after about 5 min. He denies other needs at this time. Call light in reach, will contine to monitor.
--- NOTE | 2021-08-24 16:45 | NUR ---
Update: Patient assessment unchaged VSS. Patient given 2 units insulin for CBG 226. Patient denies other needs at this time. Call light in reach, will continue to monitor.
--- NOTE | 2021-08-24 18:23 | NUR ---
Patient has done well today. Oxygen saturations have been stable on AIRVO 50l 74%. Patient has been OOB twice today up to the recliner. No acute changes this shift, will report to oncoming RN.
--- NOTE | 2021-08-25 06:02 | NUR ---
SHIFT SUMMARY: PT HAD GOOD NIGHT, O2 SLOWLY BEING DECREASED PER RT AND PT TOLERATING IT WELL. IN GOOD SPRITS AND OPTIMISTIC, STATING HE IS FEELING MUCH BETTER. ABLE TO VERBALIZE NEEDS, VSS, TELE SHOW SB IN 50'S, DENIES PAIN, BEDLOCKED AND LOW, CALL SCOTT IN REACH. LISS PRO
--- NOTE | 2021-08-25 08:00 | NUR ---
INITIAL ASSESSMENT: Patient is resting in bed with HOB elevated eating breakfast. He is alert and oriented, denies pain at this time. HRR. LS Dim in the bases, respiratory therapy was able to titrate his oxygen down to 40L FIO2 58%, biox 90-92%. Patient reports dry NPC, he states he had a bloody nose yesterday but that is improving. BT+. Patient has large hematoma to left abdomen from lovenox injections, tender to touch. PPP. AM meds given one at a time with water. Patient denies other needs this AM, will continue to monitor.
--- NOTE | 2021-08-25 12:30 | NUR ---
Update: Patient wanted to try and get OOB to recliner for lunch. He was not able to make it to the chair, his saturations dropped down into the low 80s and his AIRVO had to be increased to 50L FIO2 85%, saturations recovered into the low 90s. Patient is lying back down with HOB elevated so he can eat lunch. He denies other needs at this time, will continue to monitor.
--- NOTE | 2021-08-25 16:00 | NUR ---
Update: VSS. Biox 100%, FIO2 titrated down from 85 to 60% biox down to 95%. Patient is resting comfortably on his left side, he denies other needs at this time. Call light in reach, will continue to monitor.
[2021-08-26 04:20] LABS: Hemoglobin 12.3 g/dL (13.5-17.5)
[2021-08-26 04:39] LABS: Albumin, Blood 2.2 g/dL (3.4-5.0); Anion Gap 7 mmol/L (6-16); Blood Urea Nitrogen 23 mg/dL (8-24); Bun/Creatinine Ratio 29.8 (12.0-20.0); CO2, Blood 23 mmol/L (21-32); Calcium, Blood 9.1 mg/dL (8.5-10.1); Chloride, Blood 104 mmol/L (98-108); Creatinine, Blood 0.77 mg/dL (0.60-1.20); Glomerular Filtration Rate >60 (60-); Glucose, Blood 129 mg/dL (70-99); Phosphorus, Blood 3.4 mg/dL (2.5-4.9); Potassium, Blood 4.7 mmol/L (3.5-5.5); Sodium, Blood 134 mmol/L (136-145)
--- NOTE | 2021-08-26 05:26 | NUR ---
ROLLER SKATE REPAIRER SUMMARY PT IS AXO X4 THIS SHIFT. PT'S BP WNL AND STABLE THIS SHIFT. HR SR IN THE 60'S W SB IN LOW 50'S WHILE ASLEEP. PT AFEBRILE THIS SHIFT. PT MAINTAINED O2 SATS >92% ON AIRVO 50L W 55% FIO2. PT SLEPT COMFORTABLY FOR MOST OF THE SHIFT W CALL LIGHT WITHIN REACH. WILL REPORT TO ONCOMING RN.
--- NOTE | 2021-08-26 13:18 | NUR ---
PATIENT ALERT AND ORIENTED X4. NEURO WNL. PERRLA. ABLE TO MOVE ALL EXTREMITITES. OVERALL WEAK. DESATS WITH ACTIVITY. LUNGS SOUNDING CLEAR AN DIM IN BASES. ON HIGH FLOW HEATED NASAL CANNULA AT 45L AND 60%. SATING MID 90'S. DESATS WITH MOVEMENT. ABLE TO MOVE SELF AND TURN IN BED. TELE SHOWING SINUS RHYTHM WITH HR 70'S. BP STABLE. COMPLAINS OF DIZZINESS THIS AM THAT HAS SUBSIDED THROUGHOUT THE MORNING. NO SIGNS OF EDEMA. LARGE HEMATOMA TO ABDOMEN AND SCATTERED BRUISING. SMALL BOWEL MOVEMENT THIS AM, WITH CONTINUED BOWEL CARE. CONDOM CATH IN PLACE DRAINING YELLOW URINE. ANXIOUS AT TIMES, CONCERNED WITH OXYGEN SATURATION NUMBER. EATING SMALL AMOUNTS TODAY. SLEEPING AT THIS TIME. WILL CONTINUE TO MONITOR. CALL LIGHT IN REACH.
--- NOTE | 2021-08-26 18:38 | NUR ---
SHIFT SUMMARY: NO ACUTE CHANGES. PATIENT REMAINS ON AIRVO AT 40L AND 55%. SATING MID 90'S. AT TIMES DESATS WITH ACTIVITY AND TALKING. TELE REMAINS SINUS RHYTHM/SINUS TISHA. EATING WELL. COMPLAINS OF DIZZINESS, NEW ORDERS PLACED. PATIENT CONCERNED WITH SLEEPING TONIGHT, NEW ORDERS PLACED FOR PRN ATIVAN AT BEDTIME. DENIES OVERALL PAIN. HOME MED BROUGHT IN AND VERIFIED [facility]. PATIENT SISTER IN LAW IN TO VISIT. DENIES NEEDS AT THIS TIME. CALL LIGHT IN REACH. WILL CONTINUE TO MONITOR AND REPORT OFF.
--- NOTE | 2021-08-27 05:50 | NUR ---
PROCESSOR INSPECTOR SUMMARY PT IS AXO X4 AND USES HIS CALL LIGHT TO MAKE HIS NEEDS KNOWN. PT HAS MAINTAINED O2 SATS >90% ON AIRVO 40L 54% FIO2 THIS SHIFT. BP WNL AND STABLE. PT AFEBRILE THIS SHIFT. TELE SHOWING SR IN THE 60'S W OCCASIONAL PVC'S. PT WAS ABLE TO GET GOOD SLEEP THIS SHIFT AND REPORTED THIS TO THIS RN. PT REPORTS GETTING VERTIGO BUT ONLY WHEN HE LIES ON HIS RIGHT SIDE. WILL REPORT TO ONCOMING RN
--- NOTE | 2021-08-27 18:41 | NUR ---
SHIFT SUMMARY AIRVO CURRENTLY SET @45L/70% FIO2. PT WAS INCREASED THIS MORNING AFTER DESATING INTO THE HIGH 70'S. PT TURNED HIMSELF TO THE LEFT SIDE AND WAS NOT TOLERATING IT. DB&C EDUCATION WAS PROVIDED. PT SAID THAT "IT CAUSED HIM TO DESAT". RT WAS AT THE BEDSIDE, SHE ATTEMPTED TO EDU THE PT WITH LITTLE LUCK. PT WAS ABLE TO WORK WITH THERAPY TODAY. HE DANGLED AT THE BEDSIDE X2, THERAPIST ATTEMPTED THE JEFFREY MANEUVER TO EASE THE PT'S VIRTIGO, HE STATED THAT "IT WAS BETTER". PT EDUCATED & ENC TO PARTICIPATE IN BOTH PHYSICAL & BREATHING EXERCISES. HE IS TOLERATING PO INTAKE. NO OTHER CHANGES NOTED. CALL LIGHT IN REACH.
[2021-08-28 03:54] LABS: Hematocrit 32.5 % (37.0-53.0); Hemoglobin 11.1 g/dL (13.5-17.5); Mean Corpuscular HGB 29.2 pg (26.0-34.0); Mean Corpuscular HGB Conc 34.2 g/dL (31.5-36.5); Mean Corpuscular Volume 86 fL (80-100); Mean Platelet Volume 12.1 fL (9.1-12.4); Platelet Count 246 K/mm3 (150-400); RDW Coefficient Variation 13.9 % (11.7-14.2); RDW Standard Deviation 42.7 fL (35.1-46.3); White Blood Cell Count 11.95 K/mm3 (4.00-11.30)
[2021-08-28 04:18] LABS: Anion Gap 8 mmol/L (6-16); Blood Urea Nitrogen 21 mg/dL (8-24); Bun/Creatinine Ratio 30.5 (12.0-20.0); CO2, Blood 23 mmol/L (21-32); Calcium, Blood 8.9 mg/dL (8.5-10.1); Chloride, Blood 104 mmol/L (98-108); Creatinine, Blood 0.69 mg/dL (0.60-1.20); Glomerular Filtration Rate >60 (60-); Glucose, Blood 190 mg/dL (70-99); Phosphorus, Blood 3.3 mg/dL (2.5-4.9); Potassium, Blood 4.7 mmol/L (3.5-5.5); Sodium, Blood 135 mmol/L (136-145)
--- NOTE | 2021-08-28 06:48 | NUR ---
SHIFT SUMMARY - PT HEART RATE SB - SUSTAINING MOSTLY IN 50'S WITH AN OCCASIONAL DROP TO MID TO UPPER 40'S. PT DENIED ANY COMPLAINTS OF CHEST PAIN. PT CONTINUES TO REPORT VERTIGO WHEN REPOSITIONING HIMSELF IN BED. PT SATS HAVE BEEN WNL THROUGHOUT THE NIGHT, MID 90'S ON AIRVO - SEE VS. PT IS A PLEASANT OLDER GENTLEMEN, COOPERATIVE WITH CARE. PT SLEPT FOR APPX 6 HOURS TONIGHT. CALL LIGHT WITHIN REACH. BED IN LOW POSITION. FLUIDS AT BEDSIDE. REVIEWED WITH ANNA WYATT - HEART RATE, AND ATIVAN, AND LATER MELATONIN GIVEN - SEE EMAR. WILL CONTINUE TO MONITOR UNTIL AM SHIFT.
--- NOTE | 2021-08-28 18:59 | NUR ---
NO CHANGE IN O2 NEEDS THIS SHIFT. PT A/O X3 ANSWERING QUESTIONS IN FULL SENTENCES. NADN. DENIES CPM REPORTS CONTINUED IMPROVEMENT OF BREATHING. VSS. PT UP TO BEDSDIE CHAIR TODAY WITHOUT ISSUES. PT CONDOM CATH DRAINING WELL TO GRAVITY. NO OTHER ACUTE CHANGES TO DISCUSS THIS SHIFT
--- NOTE | 2021-08-28 20:52 | NUR ---
ASSUMED CARE OF PATIENT AT 1900. A/OX4 WITH SOME ANXIETY (CHECKS OWN PULSE OX EVERY FEW MINUTES). STILL DIZZY WHEN TRYING TO TURN ONTO R SIDE. MAINTAINS MID 90'S ON AIRVO 45L AND 70%, BUT DESATS WITH ACTIVITY AND TALKING INTO MID 80'S. NSR ON MONITOR. CONDOM CATH DRAINING YELLOW/SLIGHT PINK URINE. NO C/O CP OR URINE URGENCY/FREQ. LARGE ABDOMINAL HEMATOMA WITH SCATTERED BRUISING IN BUE. PATIENT IS VERY ALERT AND HAD MANY QUESTIONS, WHICH THIS RN EDUCATED THE PATIENT. WILL REPORT ANY CHANGES THAT OCCUR THIS SHIFT.
[2021-08-29 04:12] LABS: BASOPHILS ABSOLUTE AUTO 0.02 K/mm3 (0.00-0.23); BASOPHILS PERCENT AUTO 0 % (0-2); EOSINOPHILS ABSOLUTE AUTO 0.12 K/mm3 (0.00-0.68); EOSINOPHILS PERCENT AUTO 1 % (0-6); Hemoglobin 11.5 g/dL (13.5-17.5); IMMATURE GRAN ABSOLUTE AUTO 0.23 K/mm3 (0.00-0.10); IMMATURE GRAN PERCENT AUTO 2 % (0-1); LYMPHOCYTES ABSOLUTE AUTO 1.15 K/mm3 (0.84-5.20); LYMPHOCYTES PERCENT AUTO 10 % (21-46); MONOCYTES ABSOLUTE AUTO 0.78 K/mm3 (0.16-1.47); MONOCYTES PERCENT AUTO 7 % (4-13); Mean Corpuscular HGB Conc 33.8 g/dL (31.5-36.5); Mean Corpuscular Volume 86 fL (80-100); Mean Platelet Volume 12.2 fL (9.1-12.4); NEUTROPHILS ABSOLUTE AUTO 9.51 K/mm3 (1.96-9.15); NEUTROPHILS PERCENT AUTO 81 % (41-73); Platelet Count 236 K/mm3 (150-400); RDW Coefficient Variation 13.8 % (11.7-14.2); Red Blood Cell Count 3.96 M/mm3 (4.30-5.90); White Blood Cell Count 11.81 K/mm3 (4.00-11.30)
[2021-08-29 04:42] LABS: Alanine Aminotransfer (ALT/SGP 56 U/L (12-78); Albumin, Blood 2.1 g/dL (3.4-5.0); Albumin/Globulin Ratio 0.7 (0.8-1.8); Alk Phos 63 U/L (50-136); Anion Gap 6 mmol/L (6-16); Aspartate Aminotrans (AST/SGOT 20 U/L (12-37); Bilirubin, Total 0.5 mg/dL (0.1-1.0); Blood Urea Nitrogen 21 mg/dL (8-24); CO2, Blood 26 mmol/L (21-32); Chloride, Blood 102 mmol/L (98-108); Creatinine, Blood 0.75 mg/dL (0.60-1.20); Globulin, Blood 3.2 g/dL (2.2-4.0); Glomerular Filtration Rate >60 (60-); Glucose, Blood 133 mg/dL (70-99); Magnesium, Blood 1.8 mg/dL (1.6-2.4); Phosphorus, Blood 3.6 mg/dL (2.5-4.9); Potassium, Blood 4.3 mmol/L (3.5-5.5); Sodium, Blood 134 mmol/L (136-145); Total Protein, Blood 5.3 g/dL (6.4-8.2)
--- NOTE | 2021-08-30 00:42 | NUR ---
ASSUMED CARE OF PATIENT AT 1900. PATIENT A/OX4 WITH PERIODS OF ANXIETY. MAINTAINS 90-95% ON 45L AND 90% FIO2, STILL DESATS SOME WITH TALKING/MOVING BODY ON THE BED. SR ON MONITOR IN 80'S, NO CP. PATIENT REPORTS STILL UNABLE TO HAVE BM AND WAS TOLD HE WOULD GET MOM, AND IF THAT DOESN'T WORK A SUPPOSITORY IN AM. ORDER OBTAINED FOR MOM. CONDOM CATH AND BAG CHANGED, DRAINING YELLOW/PINK URINE WITH SLIGHT SAND-LIKE RESIDUE IN BAG. PATIENT HAD A SLIGHT FEVER AT 2150 AFTER REPORTING THAT THIS STARTED A FEW HOURS PRIOR WITH THE INABILITY TO GET WARM. MEDICATED WITH TYLENOL AND HAS RETURNED TO NORMAL. PATIENT BELIEVES THE FEVER STEMS FROM HIS EAR. WILL UPDATE WITH ANY CHANGES THIS SHIFT.
[2021-08-30 05:02] LABS: BASOPHILS ABSOLUTE AUTO 0.02 K/mm3 (0.00-0.23); BASOPHILS PERCENT AUTO 0 % (0-2); EOSINOPHILS ABSOLUTE AUTO 0.11 K/mm3 (0.00-0.68); EOSINOPHILS PERCENT AUTO 1 % (0-6); Hematocrit 32.7 % (37.0-53.0); IMMATURE GRAN ABSOLUTE AUTO 0.11 K/mm3 (0.00-0.10); IMMATURE GRAN PERCENT AUTO 1 % (0-1); LYMPHOCYTES ABSOLUTE AUTO 1.15 K/mm3 (0.84-5.20); LYMPHOCYTES PERCENT AUTO 14 % (21-46); MONOCYTES ABSOLUTE AUTO 0.58 K/mm3 (0.16-1.47); MONOCYTES PERCENT AUTO 7 % (4-13); Mean Corpuscular HGB 29.3 pg (26.0-34.0); Mean Corpuscular HGB Conc 33.6 g/dL (31.5-36.5); Mean Corpuscular Volume 87 fL (80-100); Mean Platelet Volume 12.2 fL (9.1-12.4); NEUTROPHILS ABSOLUTE AUTO 6.41 K/mm3 (1.96-9.15); NEUTROPHILS PERCENT AUTO 77 % (41-73); Platelet Count 217 K/mm3 (150-400); RDW Coefficient Variation 14.4 % (11.7-14.2); RDW Standard Deviation 44.9 fL (35.1-46.3); Red Blood Cell Count 3.76 M/mm3 (4.30-5.90); White Blood Cell Count 8.38 K/mm3 (4.00-11.30)
[2021-08-30 05:17] LABS: Alanine Aminotransfer (ALT/SGP 61 U/L (12-78); Albumin/Globulin Ratio 0.6 (0.8-1.8); Alk Phos 56 U/L (50-136); Anion Gap 6 mmol/L (6-16); Aspartate Aminotrans (AST/SGOT 24 U/L (12-37); Bilirubin, Total 0.6 mg/dL (0.1-1.0); Blood Urea Nitrogen 23 mg/dL (8-24); Bun/Creatinine Ratio 26.4 (12.0-20.0); CO2, Blood 27 mmol/L (21-32); Calcium, Blood 8.7 mg/dL (8.5-10.1); Chloride, Blood 101 mmol/L (98-108); Creatinine, Blood 0.87 mg/dL (0.60-1.20); Globulin, Blood 3.2 g/dL (2.2-4.0); Glomerular Filtration Rate >60 (60-); Glucose, Blood 116 mg/dL (70-99); Potassium, Blood 4.5 mmol/L (3.5-5.5); Sodium, Blood 134 mmol/L (136-145); Total Protein, Blood 5.2 g/dL (6.4-8.2)
--- NOTE | 2021-08-30 17:47 | NUR ---
SHIFT SUMMARY ASSUMED CARE OF PATIENT AT APPROX 0700. PT A&Ox3; ANXIOUS AT TIMES, COOPERATIVE WITH CARE. PT RESTING IN BED FOR MAJOIRTY OF SHIFT. UP TO CHAIR WITH 1 PERSON ASSIST. SOB WITH EXERTION, SPO2 >90% WHILE AT REST WITH AIRVO 45L 85-90% FIO2; DESATURATS WITH ACTIVITY, MOVEMENT AND TALKING, RECOVERS QUICKLY. PT REPORTS SLIGHT PAIN TO RIGHT EAR; DENIES NEED FOR MEDICATIONS. PT DENIES CHEST PAIN, NAUSEA AND DIZZINESS. PT RECEIVING IV STEROIDS. NO OTHER ACUTE CHANGES NOTED. WILL CONTINUE TO MONITOR UNTIL REPORT GIVEN TO ONCOMING RN.
--- NOTE | 2021-08-31 01:13 | NUR ---
ASSUMED CARE OF PATIENT AT 1900. A/OX4. GENERALIZED WEAKNESS. MAINTAINING ABOVE 90% ON 45/90% BUT DESATS WITH MVMT/TALKING INTO 70-80'S. RECOVERS WITHIN A MINUTE. CLEAR UPPER, EXPIRATORY WHEEZES AT BASES. NO CP/PRESSURE. FAINT PEDAL AND RADIAL PULSES BILATERALLY. SINUS WITH 1ST DEGREE HB. CONDOM CATH DRAINING DARK ORANGE URINE. COOL SKIN WITH DRY MUCOUS MEMBRANES. LARGE HEMATOMA STILL PRESENT ON ABDOMEN WITH NO CHANGES. PATIENT REPORTED 1 BM THIS MORNING WITH THE MILK OF MAG HE HAD LAST NIGHT AND REQUESTED IT AGAIN TONIGHT. ORDER WAS OBTAINED. WILL UPDATE WITH ANY CHANGES THIS SHIFT.
[2021-08-31 04:48] LABS: BASOPHILS ABSOLUTE AUTO 0.01 K/mm3 (0.00-0.23); BASOPHILS PERCENT AUTO 0 % (0-2); EOSINOPHILS ABSOLUTE AUTO 0.01 K/mm3 (0.00-0.68); EOSINOPHILS PERCENT AUTO 0 % (0-6); Hematocrit 32.2 % (37.0-53.0); Hemoglobin 10.8 g/dL (13.5-17.5); IMMATURE GRAN PERCENT AUTO 1 % (0-1); LYMPHOCYTES ABSOLUTE AUTO 0.53 K/mm3 (0.84-5.20); LYMPHOCYTES PERCENT AUTO 6 % (21-46); MONOCYTES ABSOLUTE AUTO 0.49 K/mm3 (0.16-1.47); MONOCYTES PERCENT AUTO 6 % (4-13); Mean Corpuscular HGB 28.7 pg (26.0-34.0); Mean Corpuscular HGB Conc 33.5 g/dL (31.5-36.5); Mean Corpuscular Volume 86 fL (80-100); Mean Platelet Volume 12.2 fL (9.1-12.4); NEUTROPHILS ABSOLUTE AUTO 7.51 K/mm3 (1.96-9.15); NEUTROPHILS PERCENT AUTO 87 % (41-73); Platelet Count 173 K/mm3 (150-400); RDW Coefficient Variation 14.1 % (11.7-14.2); RDW Standard Deviation 43.2 fL (35.1-46.3); Red Blood Cell Count 3.76 M/mm3 (4.30-5.90); White Blood Cell Count 8.65 K/mm3 (4.00-11.30)
[2021-08-31 06:20] LABS: Anion Gap 9 mmol/L (6-16); Blood Urea Nitrogen 24 mg/dL (8-24); Bun/Creatinine Ratio 32.9 (12.0-20.0); CO2, Blood 25 mmol/L (21-32); Calcium, Blood 8.6 mg/dL (8.5-10.1); Chloride, Blood 101 mmol/L (98-108); Creatinine, Blood 0.73 mg/dL (0.60-1.20); Glomerular Filtration Rate >60 (60-); Glucose, Blood 229 mg/dL (70-99); Potassium, Blood 4.8 mmol/L (3.5-5.5); Sodium, Blood 135 mmol/L (136-145)
--- NOTE | 2021-08-31 18:06 | NUR ---
SHIFT SUMMARY PT A&Ox4, ANXIOUS AT TIMES. COOPERATIVE WITH CARE. PT UP IN CHAIR WITH MEALS. 1 PERSON ASSIST. PT SPO2 >90% WHILE AT REST ON AIRVO 45L AT 80% FIO2; DESATURATES WITH MOVEMENT, COUGHING OR ACTIVITY RECOVERS QUICKLY. PT DENIES PAIN, CHEST PAIN, NASUEA OR DIZZINESS. PT RECEIVING IV STEROIDS. OTHER VSS. NO OTHER ACUTE CHANGES NOTED. WILL CONTINUE TO MONITOR UNITL REPORT GIVEN TO ONCOMING RN.
[2021-09-01 04:37] LABS: BASOPHILS ABSOLUTE AUTO 0.01 K/mm3 (0.00-0.23); BASOPHILS PERCENT AUTO 0 % (0-2); EOSINOPHILS ABSOLUTE AUTO 0.01 K/mm3 (0.00-0.68); EOSINOPHILS PERCENT AUTO 0 % (0-6); Hematocrit 29.8 % (37.0-53.0); Hemoglobin 10.1 g/dL (13.5-17.5); IMMATURE GRAN ABSOLUTE AUTO 0.09 K/mm3 (0.00-0.10); IMMATURE GRAN PERCENT AUTO 1 % (0-1); LYMPHOCYTES ABSOLUTE AUTO 0.67 K/mm3 (0.84-5.20); LYMPHOCYTES PERCENT AUTO 6 % (21-46); MONOCYTES ABSOLUTE AUTO 0.57 K/mm3 (0.16-1.47); MONOCYTES PERCENT AUTO 5 % (4-13); Mean Corpuscular HGB Conc 33.9 g/dL (31.5-36.5); Mean Corpuscular Volume 86 fL (80-100); NEUTROPHILS ABSOLUTE AUTO 10.05 K/mm3 (1.96-9.15); NEUTROPHILS PERCENT AUTO 88 % (41-73); Platelet Count 198 K/mm3 (150-400); RDW Coefficient Variation 14.2 % (11.7-14.2); Red Blood Cell Count 3.48 M/mm3 (4.30-5.90)
--- NOTE | 2021-09-01 05:12 | NUR ---
SHIFT SUMMARY PATIENT A&Ox4 T/O SHIFT. MAKES NEEDS KNOWN TO STAFF AND USES CALL LIGHT APPROPRIATLEY. VSS. COOPERATIVE WITH CARE. AIRVO REMAINS IN PLACE AT 45L, 60% FIO2 WITH SATURATIONS ABOVE 90%. PATIENT DESATS WITH ACTIVITY OR PROLONGED CONVERSATION BUT RECOVERS QUICKLY. NRB AT BEDSIDE TO ASSIST WITH RECOVERY. DENIED CHEST PAIN OR PRESSURE DURING SHIFT. TUMS ORDERED PRN FOR ACID REFLUX. NO OTHER SIGNIFICANT CHANGES NOTED. WILL REPORT TO DAY SHIFT RN.
[2021-09-01 05:39] LABS: Anion Gap 8 mmol/L (6-16); Blood Urea Nitrogen 23 mg/dL (8-24); Bun/Creatinine Ratio 32.2 (12.0-20.0); CO2, Blood 26 mmol/L (21-32); Calcium, Blood 8.6 mg/dL (8.5-10.1); Chloride, Blood 100 mmol/L (98-108); Creatinine, Blood 0.71 mg/dL (0.60-1.20); Glomerular Filtration Rate >60 (60-); Glucose, Blood 210 mg/dL (70-99); Magnesium, Blood 2.1 mg/dL (1.6-2.4); Potassium, Blood 4.9 mmol/L (3.5-5.5); Sodium, Blood 134 mmol/L (136-145)
--- NOTE | 2021-09-01 17:32 | NUR ---
PT SUMMARY: NO ACUTE CHANGES FOR THE SHIFT, VITALS HAS BEEN STABLE. PT HAS BEEN PLEASANT AND COOPERATIVE WITH CARES, GOOD APPETITE FOR THE SHIFT, ADEQUATE INTAKE AND OUTPUT, PT REMAINS ON AIRVO SETTINGS 45L 55%FIO2, PT STILL DESATS WITH MINIMAL EXERTION TO LOW 80'S BUT CAN RECOVER QUICK. PT HAS BEEN UP IN THE CHAIR FOR MEALS FOR THE SHIFT, USES BEDSIDE COMMODE FOR TOILETING, CONDOM CATH STILL IN PLACE. NO OTHER ISSUES REPORTED FOR THE SHIFT. PT ABLE TO MAKE NEEDS KNWON WILL REPORT TO ONCOMING SHIFT
--- NOTE | 2021-09-01 22:28 | NUR ---
ASSUMED CARE OF PATIENT AT APPROXIMATELY 1915 FROM EZEKIEL Mcgee RN. PATIENT ALERT AND ORIENTED X4; ANXIOUS AT TIMES. PATIENT DENIES PAIN, NUMBNESS, TINGLING, DIZZINESS AND NAUSEA. SBA FROM CHAIR TO BED; DESATS TO 81%; RECOVERS QUICKLY; USES NRB AT TIMES; WATCHES SPO2 ON FINGER PROB IN ROOM. SB/SR ON TELE; OXYGEN SATURATION ABOVE 90% ON AIRVO 45L FIO2 54%. PG S/L. LEFT ABDOMEN OOZING BLOOD FROM "BLOOD THINNER INJECTION"; BANDAID AND GOWN REPLACED. CONDOM CATH IN PLACE.
[2021-09-02 04:53] LABS: BASOPHILS ABSOLUTE AUTO 0.01 K/mm3 (0.00-0.23); BASOPHILS PERCENT AUTO 0 % (0-2); EOSINOPHILS ABSOLUTE AUTO 0.01 K/mm3 (0.00-0.68); EOSINOPHILS PERCENT AUTO 0 % (0-6); Hematocrit 31.1 % (37.0-53.0); Hemoglobin 10.6 g/dL (13.5-17.5); IMMATURE GRAN ABSOLUTE AUTO 0.09 K/mm3 (0.00-0.10); IMMATURE GRAN PERCENT AUTO 1 % (0-1); LYMPHOCYTES ABSOLUTE AUTO 0.84 K/mm3 (0.84-5.20); LYMPHOCYTES PERCENT AUTO 7 % (21-46); MONOCYTES ABSOLUTE AUTO 0.68 K/mm3 (0.16-1.47); MONOCYTES PERCENT AUTO 6 % (4-13); Mean Corpuscular HGB 29.4 pg (26.0-34.0); Mean Corpuscular HGB Conc 34.1 g/dL (31.5-36.5); Mean Corpuscular Volume 86 fL (80-100); Mean Platelet Volume 11.8 fL (9.1-12.4); NEUTROPHILS ABSOLUTE AUTO 9.89 K/mm3 (1.96-9.15); NEUTROPHILS PERCENT AUTO 86 % (41-73); Platelet Count 212 K/mm3 (150-400); RDW Coefficient Variation 14.3 % (11.7-14.2); RDW Standard Deviation 44.9 fL (35.1-46.3); White Blood Cell Count 11.52 K/mm3 (4.00-11.30)
[2021-09-02 05:38] LABS: Anion Gap 7 mmol/L (6-16); Blood Urea Nitrogen 23 mg/dL (8-24); Bun/Creatinine Ratio 29.6 (12.0-20.0); C-REACTIVE PROTEIN, EXT RANGE 0.822 mg/dL (0.000-0.300); CO2, Blood 27 mmol/L (21-32); Calcium, Blood 9.2 mg/dL (8.5-10.1); Chloride, Blood 102 mmol/L (98-108); Creatinine, Blood 0.78 mg/dL (0.60-1.20); Glomerular Filtration Rate >60 (60-); Glucose, Blood 178 mg/dL (70-99); Potassium, Blood 5.1 mmol/L (3.5-5.5); Sodium, Blood 136 mmol/L (136-145)
--- NOTE | 2021-09-02 06:16 | NUR ---
PATIENT REPORT HE SLEPT LAST NIGHT; WOULD TURN FROM SIDE TO SIDE AND DESAT AT TIMES BUT RECOVERED WITHIN MINUTES; SITE ON ABDOMEN CONTINUED TO OOZE FROM OLD "BLOOD THINNER INJECTION" SITE; GOWN WAS CHANGED TWICE. NO OTHER ACUTE CHANGES TO REPORT.
--- NOTE | 2021-09-02 18:28 | NUR ---
PT SUMMARY: NO ACUTE CHNAGE FOR THE SHIFT, AIRVO SETTINGS 45L 50% FIO2 SATS RANGING 88-90% NRB PRN AT BEDSIDE FOR RECOVERY. PT WORKED WITH PT TODAY PT STATED IT TIRE HIM OUT REQUESTED TO STAY IN BED FOR DINNER. PT WAS UP IN THE CHAIR FOR MEALS FOR BREAKFAST AND LUNCH. NO OTHER ISSUES REPORTED. CONDOM CATH CHANGED. VITALS HAS BEEN STABLE. PT PLEASANT AND COOPERATIVE, ABLE TO MAKE NEEDS KNOWN, WILL MONITOR
--- NOTE | 2021-09-02 23:33 | NUR ---
ASSUMED CARE OF PATIENT AT 1900. A/OX4, VERY PLEASANT AND COOPERATIVE WITH CARE. MAINTAINS 88-92% ON 45L AND 48%, DESATS INTO LOW 80'S WITH TALKING OR MOVEMENT. CLEAR LS T/O. NSR/SB ON MONITOR IN 50-60'S. MILD ABDOMINAL PAIN R/T LARGE ONGOING HEMATOMA ON THE ABDOMEN. LBM 09/02. CONDOM CATH DRAINING LIGHT YELLOW URINE. VSS. PATIENT DOES COMPLAIN OF MORE HEARTBURN, PRN TUMS GIVEN AND EDUCATED PATIENT TO TRY SITTING UP MUCH POSSIBLE. WILL UPDATE WITH ANY CHANGES THIS SHIFT.
[2021-09-03 06:48] LABS: Anion Gap 7 mmol/L (6-16); Blood Urea Nitrogen 25 mg/dL (8-24); Bun/Creatinine Ratio 33.3 (12.0-20.0); C-REACTIVE PROTEIN, EXT RANGE 0.438 mg/dL (0.000-0.300); CO2, Blood 25 mmol/L (21-32); Calcium, Blood 9.1 mg/dL (8.5-10.1); Chloride, Blood 104 mmol/L (98-108); Creatinine, Blood 0.75 mg/dL (0.60-1.20); Glomerular Filtration Rate >60 (60-); Glucose, Blood 152 mg/dL (70-99); Potassium, Blood 4.7 mmol/L (3.5-5.5); Sodium, Blood 136 mmol/L (136-145)
[2021-09-03 06:51] LABS: BASOPHILS ABSOLUTE AUTO 0.02 K/mm3 (0.00-0.23); BASOPHILS PERCENT AUTO 0 % (0-2); EOSINOPHILS ABSOLUTE AUTO 0.01 K/mm3 (0.00-0.68); EOSINOPHILS PERCENT AUTO 0 % (0-6); Hematocrit 31.2 % (37.0-53.0); Hemoglobin 10.6 g/dL (13.5-17.5); IMMATURE GRAN ABSOLUTE AUTO 0.21 K/mm3 (0.00-0.10); IMMATURE GRAN PERCENT AUTO 2 % (0-1); LYMPHOCYTES ABSOLUTE AUTO 0.81 K/mm3 (0.84-5.20); LYMPHOCYTES PERCENT AUTO 7 % (21-46); MONOCYTES ABSOLUTE AUTO 0.61 K/mm3 (0.16-1.47); MONOCYTES PERCENT AUTO 5 % (4-13); Mean Corpuscular HGB 29.2 pg (26.0-34.0); Mean Corpuscular Volume 86 fL (80-100); Mean Platelet Volume 11.6 fL (9.1-12.4); NEUTROPHILS ABSOLUTE AUTO 10.32 K/mm3 (1.96-9.15); NEUTROPHILS PERCENT AUTO 86 % (41-73); Platelet Count 189 K/mm3 (150-400); RDW Coefficient Variation 14.6 % (11.7-14.2); RDW Standard Deviation 45.4 fL (35.1-46.3); Red Blood Cell Count 3.63 M/mm3 (4.30-5.90); White Blood Cell Count 11.98 K/mm3 (4.00-11.30)
--- NOTE | 2021-09-03 18:39 | NUR ---
AIRVO 45L WITH 60% FIO2. PT HAS BEEN UP TO CHAIR FOR ALL MEALS TODAY. PT OTHERWISE HAS BEEN RESTING WELL IN BED T/O THE DAY. NADN. VSS. PT REMAINS VERY ANXIOUS WHICH DOES SEEM TO INHIBIT PT CARE AT TIMES PT STS THAT STAFF'S INPUT OR ANSWERS ARE NOT ACCURATE, HE IS REDIRECTABLE. THERE ARE NO OTHER ACUTE UPDATES TO DISCUSS
--- NOTE | 2021-09-04 00:26 | NUR ---
ASSUMED CARE OF PATIENT AT 1900. A/OX4 COOPERATIVE WITH CARE AND VERY PLEASANT. NO CP OR PAIN IN GENERAL. GENERALIZED WEAKENESS NOTED IN ALL EXTREMITIES. MAINTAINS ABOVE 90% ON AIRVO 45L AND 54%, CLEAR LS T/O. NSR WITH 1ST DEGREE HB AVG 64.
[2021-09-04 04:10] LABS: BASOPHILS ABSOLUTE AUTO 0.01 K/mm3 (0.00-0.23); BASOPHILS PERCENT AUTO 0 % (0-2); EOSINOPHILS ABSOLUTE AUTO 0.01 K/mm3 (0.00-0.68); EOSINOPHILS PERCENT AUTO 0 % (0-6); Hematocrit 31.9 % (37.0-53.0); Hemoglobin 10.9 g/dL (13.5-17.5); IMMATURE GRAN ABSOLUTE AUTO 0.27 K/mm3 (0.00-0.10); IMMATURE GRAN PERCENT AUTO 3 % (0-1); LYMPHOCYTES ABSOLUTE AUTO 0.59 K/mm3 (0.84-5.20); LYMPHOCYTES PERCENT AUTO 6 % (21-46); MONOCYTES ABSOLUTE AUTO 0.62 K/mm3 (0.16-1.47); MONOCYTES PERCENT AUTO 6 % (4-13); Mean Corpuscular HGB 29.5 pg (26.0-34.0); Mean Corpuscular HGB Conc 34.2 g/dL (31.5-36.5); Mean Corpuscular Volume 86 fL (80-100); Mean Platelet Volume 11.3 fL (9.1-12.4); NEUTROPHILS ABSOLUTE AUTO 8.92 K/mm3 (1.96-9.15); NEUTROPHILS PERCENT AUTO 86 % (41-73); NRBC ABSOLUTE 0.04 K/mm3 (0.00-0.02); NRBC Auto 0.4 /100 WBC (0.0-0.2); Platelet Count 194 K/mm3 (150-400); RDW Coefficient Variation 14.6 % (11.7-14.2); RDW Standard Deviation 45.3 fL (35.1-46.3); Red Blood Cell Count 3.69 M/mm3 (4.30-5.90); White Blood Cell Count 10.42 K/mm3 (4.00-11.30)
[2021-09-04 04:33] LABS: Anion Gap 7 mmol/L (6-16); Blood Urea Nitrogen 25 mg/dL (8-24); Bun/Creatinine Ratio 29.2 (12.0-20.0); C-REACTIVE PROTEIN, EXT RANGE 0.584 mg/dL (0.000-0.300); CO2, Blood 25 mmol/L (21-32); Calcium, Blood 8.7 mg/dL (8.5-10.1); Chloride, Blood 103 mmol/L (98-108); Creatinine, Blood 0.86 mg/dL (0.60-1.20); Glomerular Filtration Rate >60 (60-); Glucose, Blood 175 mg/dL (70-99); Potassium, Blood 4.4 mmol/L (3.5-5.5); Sodium, Blood 135 mmol/L (136-145)
--- NOTE | 2021-09-04 18:48 | NUR ---
PT'S O2 NEEDS HAVE NOT CHANGED THIS SHIFT. PT REMAINS A/O X4, TALKING IN FULL SENTENCES. PT WAS ABLE TO TRANSFER TO BEDSIDE CHAIR SBA, HE DOES REQUIRE THE USE OF A NRB FOR AMBULATION BUT AIRVO SETTINGS DID NOT REQUIRE ADJUSTMENT DURING AMBULATION TODAY. VSS. NADN. THERE ARE NO ACUTE CHANGES THIS SHIFT
--- NOTE | 2021-09-04 20:59 | NUR ---
ASSUMED CARE OF PATIENT AT APPROXIMATELY 1910 FROM NIEVES Gordillo RN. PATIENT ALERT AND ORIENTED X4; ANXIOUS AT TIMES. PATIENT DENIES PAIN, NUMBNESS, TINGLING, DIZZINESS AND NAUSEA. SBA FROM CHAIR TO BED. SB/SR ON TELE; OXYGEN SATURATION ABOVE 90% ON AIRVO 45L FIO2 60-66%. PG S/L. CONDOM CATH IN PLACE. PATIENT REPORTS HE HAS BEEN GETTING TOO MANY CARBS FOR FOOD WITH TWO TYPES OF POTATOES AND RICE ALL IN ONE DAY.
[2021-09-05 04:06] LABS: BASOPHILS ABSOLUTE AUTO 0.02 K/mm3 (0.00-0.23); BASOPHILS PERCENT AUTO 0 % (0-2); EOSINOPHILS ABSOLUTE AUTO 0.03 K/mm3 (0.00-0.68); EOSINOPHILS PERCENT AUTO 0 % (0-6); Hematocrit 32.9 % (37.0-53.0); Hemoglobin 11.2 g/dL (13.5-17.5); IMMATURE GRAN ABSOLUTE AUTO 0.38 K/mm3 (0.00-0.10); IMMATURE GRAN PERCENT AUTO 4 % (0-1); LYMPHOCYTES ABSOLUTE AUTO 0.52 K/mm3 (0.84-5.20); LYMPHOCYTES PERCENT AUTO 6 % (21-46); MONOCYTES ABSOLUTE AUTO 0.62 K/mm3 (0.16-1.47); MONOCYTES PERCENT AUTO 7 % (4-13); Mean Corpuscular HGB 29.6 pg (26.0-34.0); Mean Corpuscular Volume 87 fL (80-100); Mean Platelet Volume 11.4 fL (9.1-12.4); NEUTROPHILS ABSOLUTE AUTO 7.82 K/mm3 (1.96-9.15); NEUTROPHILS PERCENT AUTO 83 % (41-73); NRBC ABSOLUTE 0.03 K/mm3 (0.00-0.02); NRBC Auto 0.3 /100 WBC (0.0-0.2); Platelet Count 178 K/mm3 (150-400); RDW Coefficient Variation 15.1 % (11.7-14.2); RDW Standard Deviation 46.3 fL (35.1-46.3); Red Blood Cell Count 3.79 M/mm3 (4.30-5.90); White Blood Cell Count 9.39 K/mm3 (4.00-11.30)
[2021-09-05 04:32] LABS: Alanine Aminotransfer (ALT/SGP 44 U/L (12-78); Albumin, Blood 2.2 g/dL (3.4-5.0); Albumin/Globulin Ratio 0.8 (0.8-1.8); Alk Phos 60 U/L (50-136); Anion Gap 7 mmol/L (6-16); Aspartate Aminotrans (AST/SGOT 16 U/L (12-37); Bilirubin, Total 0.3 mg/dL (0.1-1.0); Blood Urea Nitrogen 23 mg/dL (8-24); Bun/Creatinine Ratio 27.4 (12.0-20.0); C-REACTIVE PROTEIN, EXT RANGE 0.725 mg/dL (0.000-0.300); CO2, Blood 26 mmol/L (21-32); Calcium, Blood 8.8 mg/dL (8.5-10.1); Chloride, Blood 104 mmol/L (98-108); Creatinine, Blood 0.84 mg/dL (0.60-1.20); Globulin, Blood 2.9 g/dL (2.2-4.0); Glomerular Filtration Rate >60 (60-); Glucose, Blood 167 mg/dL (70-99); Potassium, Blood 4.7 mmol/L (3.5-5.5); Sodium, Blood 137 mmol/L (136-145); Total Protein, Blood 5.1 g/dL (6.4-8.2)
--- NOTE | 2021-09-05 06:15 | NUR ---
PATIENT REPORTS SLEEPING WELL LAST NIGHT; SLEPT ABOUT EIGHT HOURS OFF AND ON. NO OTHER ACUTE CHANGES.
--- NOTE | 2021-09-05 17:46 | NUR ---
PT SUMMARY: NO ACUTE CHANGE FOR JUAN MANUEL SHIFT, REMAINS ON AIRVO 45L 65% FIO2 SETTINGS, NRB MASK AT BEDSIDE PRN FOR RECOVERY. VITALS HAS BEEN STABLE. HAS BEEN UP IN THE CHAIR FOR MEALS. WORKED WITH PT TODAY. HAD LARGE BM, CONDOM CATH WAS CHANGED, POWER GLIDE DRESSING CHANGED WELL. DENIES ANY PAIN FOR THE SHIFT, SON CAME IN TO VISIT, PT ABLE TO MAKE NEEDS KNOWN CALL LIGHTS IN REACH. WILL CONTINUE TO MONITOR
--- NOTE | 2021-09-05 20:46 | NUR ---
ASSUMED CARE OF PATIENT AT APPROXIMATELY 1910 FROM EZEKIEL Mcgee RN. PATIENT ALERT AND ORIENTED X4; ANXIOUS AT TIMES. PATIENT DENIES PAIN, NUMBNESS, TINGLING, DIZZINESS AND NAUSEA. SBA FROM CHAIR TO BED. SB/SR ON TELE; OXYGEN SATURATION ABOVE 90% ON AIRVO 40L FIO2 61%. PG S/L. CONDOM CATH IN PLACE. PATIENT REPORTS HE HAD A GOOD DAY WORKING WITH PT.
[2021-09-06 04:59] LABS: BASOPHILS ABSOLUTE AUTO 0.01 K/mm3 (0.00-0.23); BASOPHILS PERCENT AUTO 0 % (0-2); EOSINOPHILS ABSOLUTE AUTO 0.01 K/mm3 (0.00-0.68); EOSINOPHILS PERCENT AUTO 0 % (0-6); Hematocrit 32.1 % (37.0-53.0); Hemoglobin 10.8 g/dL (13.5-17.5); IMMATURE GRAN ABSOLUTE AUTO 0.41 K/mm3 (0.00-0.10); IMMATURE GRAN PERCENT AUTO 5 % (0-1); LYMPHOCYTES ABSOLUTE AUTO 0.77 K/mm3 (0.84-5.20); LYMPHOCYTES PERCENT AUTO 8 % (21-46); MONOCYTES ABSOLUTE AUTO 0.57 K/mm3 (0.16-1.47); MONOCYTES PERCENT AUTO 6 % (4-13); Mean Corpuscular HGB 29.5 pg (26.0-34.0); Mean Corpuscular HGB Conc 33.6 g/dL (31.5-36.5); Mean Corpuscular Volume 88 fL (80-100); Mean Platelet Volume 11.6 fL (9.1-12.4); NEUTROPHILS ABSOLUTE AUTO 7.44 K/mm3 (1.96-9.15); NEUTROPHILS PERCENT AUTO 81 % (41-73); NRBC ABSOLUTE 0.02 K/mm3 (0.00-0.02); NRBC Auto 0.2 /100 WBC (0.0-0.2); Platelet Count 172 K/mm3 (150-400); RDW Coefficient Variation 15.4 % (11.7-14.2); RDW Standard Deviation 48.4 fL (35.1-46.3); Red Blood Cell Count 3.66 M/mm3 (4.30-5.90); White Blood Cell Count 9.21 K/mm3 (4.00-11.30)
--- NOTE | 2021-09-06 05:32 | NUR ---
PATIENT SLEPT ABOUT SIX HOURS. NO ACUTE CHANGES TO REPORT.
[2021-09-06 05:38] LABS: Albumin, Blood 2.1 g/dL (3.4-5.0); Anion Gap 6 mmol/L (6-16); Blood Urea Nitrogen 27 mg/dL (8-24); Bun/Creatinine Ratio 37.6 (12.0-20.0); C-REACTIVE PROTEIN, EXT RANGE 0.473 mg/dL (0.000-0.300); CO2, Blood 26 mmol/L (21-32); Calcium, Blood 8.6 mg/dL (8.5-10.1); Chloride, Blood 104 mmol/L (98-108); Creatinine, Blood 0.72 mg/dL (0.60-1.20); Glomerular Filtration Rate >60 (60-); Glucose, Blood 170 mg/dL (70-99); Phosphorus, Blood 3.2 mg/dL (2.5-4.9); Potassium, Blood 4.6 mmol/L (3.5-5.5); Sodium, Blood 136 mmol/L (136-145)
--- NOTE | 2021-09-06 15:22 | NUR ---
PT SUMMARY: PT TRANSITIONED TO MEDICAL STATUS WITH NO TELE. NO ACUTE CHANGE FOR JUAN MANUEL SHIFT, VITALS HAS BEEN STABLE. DENIES ANY PAIN. REMAINS ON 40L 60%FIO2 ON AIRVO SATS KEPT ABOVE 90% PT WILL DESAT TO 85'S NRB MASK AT BEDSIDE FOR RECOVERIES. PT UP IN THE CHAIR FOR MEALS, CALLS APPROPRIATELY, NO OTHER ISSUES REPORTED, WILL MONITOR
--- NOTE | 2021-09-06 18:17 | NUR ---
SHIFT SUMMARY: ASSUMED CARE AT 1630. PATIENT SITTING IN CHAIR FOR DINNER AND RECEIVED MEDICATIONS PER EMAR. PATIENT STABLE ON 50% FIO2 BUT STATES HE CAN TELL HE'S WORKING A LITTLE HARDER TO MAINTAIN 02 SATURATION WHILE EATING. CURRENTLY 89-92% O2 SATURATION. REQUESTED FRESH CUP OF WATER WHEN HE FINISHES DINNER, WHICH HE IS STILL EATING. WILL REPORT TO LELO RN.
--- NOTE | 2021-09-06 20:38 | NUR ---
ASSUMED CARE OF PATIENT AT APPROXIMATELY 1905 FROM LEONID Mcgee RN. PATIENT ALERT AND ORIENTED X4; ANXIOUS AT TIMES. PATIENT DENIES PAIN, NUMBNESS, TINGLING, DIZZINESS AND NAUSEA. SBA FROM CHAIR TO BED; USES BEDPAN. OXYGEN SATURATION ABOVE 90% ON AIRVO 40L FIO2 58%. PG S/L. CONDOM CATH IN PLACE. PATIENT REPORTS HE HAD AND GOOD AND BAD DAY; REPORTS FEELING MORE TIRED AND SOB BY DINNER. MEDICAL NO TELE STATUS.
[2021-09-07 03:23] LABS: Hematocrit 33.2 % (37.0-53.0); Hemoglobin 11.3 g/dL (13.5-17.5); Mean Corpuscular HGB 29.4 pg (26.0-34.0); Mean Corpuscular Volume 86 fL (80-100); Mean Platelet Volume 11.2 fL (9.1-12.4); Platelet Count 192 K/mm3 (150-400); RDW Coefficient Variation 15.5 % (11.7-14.2); RDW Standard Deviation 47.6 fL (35.1-46.3); Red Blood Cell Count 3.85 M/mm3 (4.30-5.90)
[2021-09-07 03:57] LABS: BAND PERCENT MAN 5 % (0-8); BASOPHILS PERCENT MAN 0 % (0-2); EOSINOPHILS PERCENT MAN 0 % (0-6); LYMPHOCYTES ABSOLUTE MAN 0.57 K/mm3 (0.84-5.20); LYMPHOCYTES PERCENT MAN 6 % (21-46); MONOCYTES ABSOLUTE MAN 0.57 K/mm3 (0.16-1.47); MONOCYTES PERCENT MAN 6 % (4-13); MYELOCYTE ABSOLUTE MAN 0.09 K/mm3 (0.00-0.00); MYELOCYTE PERCENT MAN 1 % (0-0); NEUTROPHILS ABSOLUTE MAN 8.26 K/mm3 (1.96-9.15); SEG NEUTROPHILS PERCENT MAN 82 % (41-73); TOTAL CELLS COUNTED 100
--- NOTE | 2021-09-07 06:25 | NUR ---
PATIENT REPORTS HE "ACTUALLY DREAMT LAST NIGHT" FOR THE THIRD TIME THIS HOSPITALIZATION AND HE FEELS GOOD. NO ACUTE CHANGES TO REPORT.
--- NOTE | 2021-09-07 17:58 | NUR ---
NO ACUTE CHANGE FOR THE SHIFT, PT REPORTED FEELING EXHAUSTED AFTER PT SESSION, REQUESTED TO STAY IN BED FOR LUNCH. PT SATISFIED AND WAS ABLE TO HAVE CONVERSATION WITH THE SAUSAGE MAKER. CONDOM CATH REPLACED TWICE. REMAINS ON 40L 58% AIRVO SETTINGS WITH NRB MASK AT BEDSIDE. CALLS APPROPRIATELY WILL MONITOR
--- NOTE | 2021-09-08 01:56 | NUR ---
ASSUMED CARE OF PT AT 1900. A/OX4. MAINTAINS OVER 92% ON 40L/60% AIRVO WITH PRN NRB FOR RECOVERIES. LS CLEAR ON TOP, DIM AT BASES. CONDOM CATH DRAINING LIGHT YELLOW URINE. PATIENT C/O BEING UNABLE TO DEFECATE. PRN SUPPOSITORY GIVEN AND PATIENT WAS ABLE TO GO. PATIENT WOULD LIKE TO DISCUSS DAILY MIRALAX WITH DR. PEREZ ON STOMACH THAT'S IMPROVING. WILL UPDATE WITH ANY CHANGES THIS SHIFT.
[2021-09-08 04:25] LABS: BASOPHILS ABSOLUTE AUTO 0.02 K/mm3 (0.00-0.23); BASOPHILS PERCENT AUTO 0 % (0-2); EOSINOPHILS ABSOLUTE AUTO 0.01 K/mm3 (0.00-0.68); EOSINOPHILS PERCENT AUTO 0 % (0-6); Hematocrit 33.6 % (37.0-53.0); IMMATURE GRAN ABSOLUTE AUTO 0.38 K/mm3 (0.00-0.10); IMMATURE GRAN PERCENT AUTO 3 % (0-1); LYMPHOCYTES ABSOLUTE AUTO 1.12 K/mm3 (0.84-5.20); LYMPHOCYTES PERCENT AUTO 9 % (21-46); MONOCYTES ABSOLUTE AUTO 0.77 K/mm3 (0.16-1.47); MONOCYTES PERCENT AUTO 6 % (4-13); Mean Corpuscular HGB 28.8 pg (26.0-34.0); Mean Corpuscular HGB Conc 32.7 g/dL (31.5-36.5); Mean Corpuscular Volume 88 fL (80-100); Mean Platelet Volume 11.2 fL (9.1-12.4); NEUTROPHILS ABSOLUTE AUTO 9.67 K/mm3 (1.96-9.15); NEUTROPHILS PERCENT AUTO 81 % (41-73); NRBC ABSOLUTE 0.02 K/mm3 (0.00-0.02); NRBC Auto 0.2 /100 WBC (0.0-0.2); Platelet Count 181 K/mm3 (150-400); RDW Coefficient Variation 15.7 % (11.7-14.2); RDW Standard Deviation 49.1 fL (35.1-46.3); Red Blood Cell Count 3.82 M/mm3 (4.30-5.90); White Blood Cell Count 11.97 K/mm3 (4.00-11.30)
[2021-09-08 05:37] LABS: Alanine Aminotransfer (ALT/SGP 42 U/L (12-78); Albumin, Blood 2.2 g/dL (3.4-5.0); Albumin/Globulin Ratio 0.8 (0.8-1.8); Alk Phos 63 U/L (50-136); Anion Gap 8 mmol/L (6-16); Aspartate Aminotrans (AST/SGOT 22 U/L (12-37); Bilirubin, Total 0.4 mg/dL (0.1-1.0); Blood Urea Nitrogen 29 mg/dL (8-24); Bun/Creatinine Ratio 39.7 (12.0-20.0); C-REACTIVE PROTEIN, EXT RANGE <0.290 mg/dL (0.000-0.300); CO2, Blood 24 mmol/L (21-32); Calcium, Blood 8.5 mg/dL (8.5-10.1); Chloride, Blood 103 mmol/L (98-108); Creatinine, Blood 0.73 mg/dL (0.60-1.20); Globulin, Blood 2.7 g/dL (2.2-4.0); Glomerular Filtration Rate >60 (60-); Glucose, Blood 166 mg/dL (70-99); Potassium, Blood 4.8 mmol/L (3.5-5.5); Sodium, Blood 135 mmol/L (136-145); Total Protein, Blood 4.9 g/dL (6.4-8.2)
--- NOTE | 2021-09-08 18:04 | NUR ---
SHIFT SUMMARY PT ALERT AND ORIENTED. SBA. PT USES NON-REBREATHER AT 15 L AND AIRVO AT 40 L AND 60% FIO2 TO RECOVER AFTER AMBULATING. OXYGEN SATURATION MAINTAINED ABOVE 90%. HR STABLE. BP STABLE. NO CP OR PRESSURE. PT ABLE TO TURN SELF IN BED. PT WORKED WITH PO TODAY. PT REPORTS CONTIPATION. PLAN FOR PT TO HAVE MIRILAX TONIGHT, THEN "BROWN COW" PRUNE JUICE, APPLE JUICE, PAT OF BUTTER, WITH BREAKFAST. IF NO BM BY LUNCH PT WANTS TO HAVE FLEET ENEMA BY TOMORROW AFTERNOON. WILL INFORM NIGHTSHIFT RN. WILL CONT TO MONITOR UNTIL REPORT GIVEN TO NIGHTSHIFT RN.
--- NOTE | 2021-09-09 04:30 | NUR ---
MARILYN WAS ADMITTED TO THE [facility] FLOOR LAST NIGHT. SLEPT WITH HIS HFNC 40/60 SPO2 REMAINED IN THE UPPER 90'S AND VITALS REMAINED STABLE. HE WAS HYPERTENSIVE BEFORE TRANSFER BUT HIS BP WENT DOWN. PLAN FOR POSSIBLE FLEET ENEMA FOR CONSTIPATION DURING DAY SHIFT
[2021-09-09 06:35] LABS: Hematocrit 35.7 % (37.0-53.0); Hemoglobin 11.9 g/dL (13.5-17.5); Mean Corpuscular HGB 29.4 pg (26.0-34.0); Mean Corpuscular HGB Conc 33.3 g/dL (31.5-36.5); Mean Corpuscular Volume 88 fL (80-100); NRBC ABSOLUTE 0.03 K/mm3 (0.00-0.02); NRBC Auto 0.3 /100 WBC (0.0-0.2); Platelet Count 195 K/mm3 (150-400); RDW Coefficient Variation 16.1 % (11.7-14.2); RDW Standard Deviation 50.5 fL (35.1-46.3); Red Blood Cell Count 4.05 M/mm3 (4.30-5.90); White Blood Cell Count 10.36 K/mm3 (4.00-11.30)
[2021-09-09 06:49] LABS: Alanine Aminotransfer (ALT/SGP 43 U/L (12-78); Albumin, Blood 2.3 g/dL (3.4-5.0); Albumin/Globulin Ratio 0.8 (0.8-1.8); Alk Phos 59 U/L (50-136); Anion Gap 8 mmol/L (6-16); Aspartate Aminotrans (AST/SGOT 19 U/L (12-37); Bilirubin, Total 0.4 mg/dL (0.1-1.0); Blood Urea Nitrogen 24 mg/dL (8-24); C-REACTIVE PROTEIN, EXT RANGE <0.290 mg/dL (0.000-0.300); CO2, Blood 25 mmol/L (21-32); Calcium, Blood 8.6 mg/dL (8.5-10.1); Chloride, Blood 104 mmol/L (98-108); Creatinine, Blood 0.71 mg/dL (0.60-1.20); Globulin, Blood 2.8 g/dL (2.2-4.0); Glomerular Filtration Rate >60 (60-); Glucose, Blood 122 mg/dL (70-99); Magnesium, Blood 1.9 mg/dL (1.6-2.4); Potassium, Blood 4.7 mmol/L (3.5-5.5); Sodium, Blood 137 mmol/L (136-145); Total Protein, Blood 5.1 g/dL (6.4-8.2)
[2021-09-09 06:59] LABS: Prothrombin Time Results 10.5 Sec (9.7-11.5)
[2021-09-09] MEDS ORDERED: FLUTICASONE-SA1 EAC9 INH (08:13)
[2021-09-09] MEDS ORDERED: ALBU90OI INH (08:43)
[2021-09-09] MEDS ORDERED: Flonase 0.05% N16 GM (08:45)
--- NOTE | 2021-09-09 17:10 | NUR ---
SHIFT SUMMARY PT AAOX4, ABLE TO MAKE NEEDS KNOWN, PLEASANT AND COOPERATIVE TO CARE. NO C/O PAIN THIS SHIFT. NO C/O CP OR N/V/D. PT REMAINS ON AIRVO AT 45L AND 60% FIO2 PER RT. PT NOTED TO DESAT WITH MINIMAL EXERTION. PT WORKED WITH THERAPY THIS SHIFT. PT CALLS APPROPRIATELY FOR ASSISTANCE. BED AT LOWEST POSITION, CALL LIGHT WITHIN REACH.
--- NOTE | 2021-09-09 18:07 | NUR ---
SHIFT SUMMARY PT IS AAOX4, ABLE TO MAKE NEEDS KNOWN. PLEASANT AND COOPERATIVE TO CARE. NO C/O PAIN THIS SHIFT. PT DENIES CP OR N/V/D. PT REMAINS ON AIRVO 40L AND 60 FIO2 SATTING 92-94% AT REST, PT NOTED TO DESAT WITH MINIMAL EXERTION. NO ACUTE CHANGES NOTED TO PT THIS SHIFT. BED AT LOWEST POSITION. CALL LIGHT WITHIN REACH.
--- NOTE | 2021-09-09 20:15 | NUR ---
ASSUMED CARE. AOX4, COOPERATIVE AND CONSISTENT WITH CARE. VERBALIZED UNDERSTANDING OF STEPS HE NEEDS TO TAKE TO REACH DISCHARGE. VERBALIZED BREATHING EXERCISES AND DAILY ROUTINES. APPEARS TO BE DOING WELL TO STAY ON TASK FOR IMPROVEMENT. LS ARE CLEAR WITH MODERATE AIR EXCHANGE. AVERAGE SATS 87-93% PER CONT. PULSE OX. DYSPNEA W/ EXERTION SATS DROP TO LOW 80%. RECOVERY MOST OF THE TIME IS W/ IN 5 MIN. OCCATIONALLY NEEDS ADDITIONAL 15L NR. NO COUGH NOTED. NO PAIN, VS WNL. LG HEMATOMA WITH SIGNS OF HEALING TO ABDOMIN. 2 FIRM AREAS LATERAL LEFT OF BELLY BUTTON AND LATERAL RIGHT SIDE. BM TODAY. AIRVO CONTINUES AT 40L / 60% FIO2. CONDOM CATH HOLDING DRAINING CLEAR YELLOW URINE. WILL CONTINUE TO MONITOR, CALL LIGHT IN REACH.
--- NOTE | 2021-09-10 05:33 | NUR ---
SHIFT SUMMARY: VS WNL, AFEBRILE. CONTINUES ON AIRVO 40L /60% FIO2, DESATS WITH COUGH, OR SLIGHT EXERTION. RECOVERY LESS THEN 1 MIN. OCCATIONALLY STILL NEEDS ADDITIONAL 15L NR FOR WHEN HE DOES MORE EXTENSIVE EXERTION. COMPLIANT WITH FLUTTER VALVE AND INSPIROMETER EXERCISES. ENCOURAGE MORE PHYSICAL EXERCISES AND MOVEMENT. LS CLEAR BUT MODERATE AIR MOVEMENT, NO COUGH. ACTIVITY INTOLERANCE. CONDOM CATH WITH CLEAR YELLOW URINE. BM YESTERDAY. BLOOD SUGAR 232, SEEMLEE ADMINISTERED. RASH TO ARMPITS ALMOST RESOLVED. HEMATOMA TO ABDOMIN IMPROVING. ABLE TO MAKE NEEDS KNOWN. CALL LIGHT IN REACH.
--- NOTE | 2021-09-10 17:50 | NUR ---
PT IS A/O X4 PLEASANT AND COOPERATIVE. THE PT IS ON AIR-VO 40/55 AT THIS TIME. THE PT'S O2 SAT'S DROP TO THE LOW 80 PERCENTS. PT WAS UP ON THE SIDE OF THE BED THIS AM BUT SINCE HAS NOT FELT READY TO SIT UP OR GET UP TO THE CHAIR TODAY. PT DECLINED PHYSICAL THERAPY THIS AFTERNOON, THE PT WAS GIVEN A SUPPOSITRY THIS AM AND HAD A LARGE HARD TO SOFT BM. PT DENIED ANY PAIN. PT IS NOW UP ON THE SIDE OF THE BED FOR DINNER O2 SAT'S DROPPED TO THE LOW 80'S HOWEVER, HE SEEMED TO RECOVER FAIRLY QUIKLIBIA USEING THE NON REBREATHER AT 15L/MIN WITH THE AIR-VO, CALL LIGHT IN REACH, WILL CONTINUE TO MONITOR AND ASSESS FOR CHANGES.
--- NOTE | 2021-09-11 05:51 | NUR ---
SHIFT SUMMARY PT A/O X4 AND PLEASANT. HE IS CURRENTLY ON 40/55 VIA AIRVO. MAINTAINING O2 SATS IN THE LOW 90'S AND HIGH 80'S WHILE AT REST. WILL DESAT WITH ACTIVITY. USES I/S AND FLUTTER VALVE OFTEN. PT C/O OF "NERVE CONTRACTIONS" IN HIS R HAND TODAY THAT HE REPORTS RECENTLY HAS SPREAD TO THE L HAND WELL. WILL MONITOR FOR CHANGES. DORSEY CONDOM CATH IN PLACE DUE TO PT NOT BEING ABLE TO TOLERATE ACTIVITY AT THIS TIME. VSS. WILL REPORT TO DAY SHIFT RN.
[2021-09-11 06:56] LABS: Thyroid Stimulating Hormone 0.587 uIU/mL (0.360-4.800)
[2021-09-11 07:04] LABS: Hematocrit 34.5 % (37.0-53.0); Hemoglobin 11.7 g/dL (13.5-17.5)
[2021-09-11 07:29] LABS: Albumin, Blood 2.3 g/dL (3.4-5.0); Anion Gap 6 mmol/L (6-16); Blood Urea Nitrogen 24 mg/dL (8-24); Bun/Creatinine Ratio 36.4 (12.0-20.0); CO2, Blood 27 mmol/L (21-32); Calcium, Blood 8.9 mg/dL (8.5-10.1); Chloride, Blood 103 mmol/L (98-108); Creatinine, Blood 0.66 mg/dL (0.60-1.20); Glomerular Filtration Rate >60 (60-); Glucose, Blood 125 mg/dL (70-99); Magnesium, Blood 2.2 mg/dL (1.6-2.4); Phosphorus, Blood 3.8 mg/dL (2.5-4.9); Potassium, Blood 4.7 mmol/L (3.5-5.5); Sodium, Blood 136 mmol/L (136-145)
--- NOTE | 2021-09-11 17:19 | NUR ---
SHIFT SUMMARY: PT A/O STANDBY ASSIST WITH WALKER IN ROOM. PLEASANT AND COOPERATIVE WITH CARE. PT WAS ABLE TO PIVOT TX TO CHAIR TODAY AND TOLERATED SITTING IN CHAIR FOR TWO HOURS. HE WORKED WITH PT. HE DID HAVE A TIME IN THE EVENING WHEN HE WAS TALKING ON THE PHONE AND DID NOT RECOVER QUICKLY WITH SATS AND RT INCREASED AIRVO TO 50/53. PT WAS UPSET WITH INCREASE. PT EDUCATED BY RT AND RN ABOUT O2 USE AND CONCERNS OF HYPOXEMIA. PT VU. PT HAD 2 FORMED BM'S TODAY AND REPORTED IT IS GETTING EASIER TO HAVE BM. NO ACUTE CONCERNS THIS SHIFT.
--- NOTE | 2021-09-12 05:13 | NUR ---
SHIFT SUMMARY PT A/O X4 AND PLEASANT. CURRENTLY ON AIRVO AT 45/55 AND HAS MAINTAINING O2 SATS IN THE MID 90'S THIS SHIFT. PT SLEPT THROUGH THE NIGHT W/NO COMPLAINTS. CONDOM CATH IN PLACE WITH GOOD OUTPUT. PT DOES REQUEST TO GET HIS EVENING MEDICATIONS CLOSER TO 10 RATHER THAN 9 IT IS CLOSER TO WHEN HE GOES TO SLEEP. VSS.
--- NOTE | 2021-09-12 14:39 | NUR ---
SHIFT SUMMARY PT AWAKE AT START OF SHIFT, WATCHING TV. PT ENCOURAGED TO GET UP TO EOB FOR BREAKFAST. PT DID BRIEFLY AND THEN WANTING TO LAY BACK DOWN AND EAT BREAKFAST IN BED. PT IS CONSTANTLY USING HOME FINGER BIOX BEFORE ATTEMPTING TO DO ANYTHING, EVEN IF NOT SOB. EVEN WHEN BIOX IS WELL ABOVE 90%, PT WORRIES THAT IT MAY DROP TO 89%. PT FINALLY TOOK HOME FINGER BIOX OFF AND GOT TO CHAIR FOR LUNCH AND DID FINE. NO SOB AND BIOX WAS WNL'S. PT SITTING UP TO CHAIR UNTIL JUST NOW. DR LOPEZ IN TO SEE PT. NEW ORDERS PLACED. CELEBREX ORDERED AND GIVEN. MCINTOSH OF WARM WATER GIVEN WELL TO SOAK HAND AND WRIST IN. BED LINENS CHANGED WHILE UP IN CHAIR. PT TALKING ON PHONE, RESTING QUIETLY. DENIED FURTHER NEEDS AT THIS TIME. CALL LT IN REACH.
--- NOTE | 2021-09-13 05:42 | NUR ---
SHIFT SUMMARY PATIENT ALERT AND ORIENTED. HAD NO COMPLAINTS OF PAIN OR SHORNESS OF BREATH. CONTINUES ON AIRVO, MONITORED BY RT. NO ACUTE ISSUES NOTED OVERNIGHT. CALL LIGHT WITHIN REACH. REPORT GIVEN TO ONCOMING RN.
--- NOTE | 2021-09-13 16:18 | NUR ---
SHIFT SUMMARY NO ACUTE CHANGES TO PRESENT THIS SHIFT. PT CONTINUES TO IMPROVE SLOWLY, INCREASING MOBILITY AND ENDURANCE EACH DAY. UP TO CHAIR FOR ALL MEALS. GETTING UP TO EOB AND THEN TO CHAIR ON HIS OWN NOW. REPORTED CELEBREX VERY EFFECTIVE FOR CRAMPING IN HANDS AND WRISTS. NOW USING URINAL INSTEAD OF CONDOM CATH. PLEASANT AND GRATEFUL TO BE IMPROVING. CALL LT IN REACH.
--- NOTE | 2021-09-14 05:38 | NUR ---
SHIFT SUMMARY PATIENT ALERT AND ORIENTED. HAD NO COMPLAINTS OF PAIN OR SHORTNESS OF BREATH. CONTINTUES ON AIRVO MONITORED BY RT. NO ACUTE ISSUES NOTED. CALL LIGHT WITHIN REACH. REPORT GIVEN TO ONCOMING RN.
--- NOTE | 2021-09-14 18:04 | NUR ---
SHIFT SUMMARY NO ACUTE CHANGES NOTED TO PT THIS SHIFT. AAOX4, ABLE TO MAKE NEEDS KNOWN, PLEASANT AND COOPERATIVE TO CARE. NO C/O PAIN OR ANY DISCOMFORT THIS SHIFT. DENIES CP OR N/V/D. PT ON AIRVO PER RT AT 40L AND 50 FIO2. PT SATTING 93%. SOB WITH EXERTION NOTED. PT REQUIRES 1P SBA WITH TRANSFERS. BED AT LOWEST POSITION, CALL LIGHT WITHIN REACH.
--- NOTE | 2021-09-15 04:15 | NUR ---
SUMMARY NO NEW ISSUES NOTED. PT REMAINS ON AIRVO AND HAS JOLLY. PT PLESANT AND COOPERATIVE. PT HAS BEEN ABLE TO SLEEP THIS SHIFT. PT CURRENTLY SLEEPING IN NO DISTRESS. CALL LIGHT IN REACH.
--- NOTE | 2021-09-15 16:42 | NUR ---
SHIFT SUMMARY PT A/O X4; PLEASANT AND COOPERATIVE WITH CARE. HE REMAINS ON AIRVO AT 40/50. PT WORKED WITH PHYSICAL THERAPY TODAY AND USED THE NON-REBREATHER IN ORDER TO HELP WORK OF BREATHING. UP TO THE SIDE OF THE BED FOR MEALS. PT ABLE TO MAKE HIS NEEDS KNOWN. VSS. WILL REPORT TO LELO LEIJA.
--- NOTE | 2021-09-16 05:26 | NUR ---
SHIFT SUMMARY CARE ASSUMED AT 1900. PT REMAINS ON SUPPLEMENTAL OXYGEN VIA AIRVO AT 40LPM AT 50% FiO2 VIA HUMIDIFIED HIGH FLOW NC. CONTINUOUS OULSE OXIMETRY CONTINUES, PT DESATS WITH ACTIVITY. REMAINS AFEBRILE. LUE POWERGLIDE IN PLACE WITH + BLOOD RETURN, SITE BENIGN. CONDOM CATH IN PLACE, PATENT, DRAINING URINE VIA GRAVITY. CBG 227MG/DL, MEDICATED PER EMAR. NO BMs DURING SHIFT. NO MORNING LABS WERE ORDERED. BED REMAINS IN LOW POSITION WITH THE CALL LIGHT WITHIN EASY REACH. PT ABLE TO VOICE NEEDS. NO COMPLAINTS VOICED. WILL CONTINUE TO MONITOR.
--- NOTE | 2021-09-16 18:28 | NUR ---
SHIFT SUMMARY NO ACUTE CHANGES THIS SHIFT. PT HAS BEEN IN THE HOSPITAL FOR QUITE SOME TIME AND REMAINS ON HUMIDIFIED HIGH FLOW AT 40/50. HE WILL USE A NON-REBREATHER WITH EXERTION IN ORDER TO KEEP HIS SATS UP. VSSunshine. WILL REPORT TO LELO LEIJA.
--- NOTE | 2021-09-17 04:23 | NUR ---
SHIFT SUMMARY NO ACUTE EVENTS THROUGH THE NIGHT. PT REMAINS ON HIGH FLOW WITH 40L/50% O2.ALL MEDS WERE GIVEN PER EMAR.PT IS RESTING COMFORTABLY AT THIS TIME. NO SIGN OF DISTRESS NOTED.BED IN LOWER POSITION,CALL LIGHT IN REACH. WILL CONTINUE TO MONITOR.
[2021-09-17 05:04] LABS: Hemoglobin 10.5 g/dL (13.5-17.5); Mean Corpuscular HGB 29.7 pg (26.0-34.0); Mean Corpuscular HGB Conc 33.9 g/dL (31.5-36.5); Mean Corpuscular Volume 88 fL (80-100); Mean Platelet Volume 10.9 fL (9.1-12.4); NRBC ABSOLUTE 0.03 K/mm3 (0.00-0.02); NRBC Auto 0.3 /100 WBC (0.0-0.2); Platelet Count 182 K/mm3 (150-400); RDW Coefficient Variation 17.1 % (11.7-14.2); RDW Standard Deviation 52.7 fL (35.1-46.3); Red Blood Cell Count 3.53 M/mm3 (4.30-5.90); White Blood Cell Count 11.98 K/mm3 (4.00-11.30)
[2021-09-17] MEDS ORDERED: ZOLP10 PO (16:49)
--- NOTE | 2021-09-17 18:53 | NUR ---
SHIFT SUMMARY PATIENT IS ON AIRVO 40L/50%. CONTINUOUS PULSE OX RANGING FROM 86-96%. PATIENT WILL USE NON-REBREATHER MASK NEEDED WITH ACTIVITY. PATIENT IS USING CONDOM CATHETER AND CONDOM AND BEDPAN. PATIENT HAS A POWERGLIDE ON LEFT UPPER ARM. LARGE BRUISE NOTED ON ABDOMEN AND SMALLER BRUISES SCATTERED OVER BODY. VITAL SIGNS STABLE. WILL CONTINUE TO MONITOR.
--- NOTE | 2021-09-18 04:03 | NUR ---
SHIFT SUMMARY PT IS AA0X4.LIMITED CODE STATUS .NO NEWS CONCERNS THROUGH THE NIGHT. PT STILL ON AIRVO 40L/50%, SATURATION FROM 92 TO 96 % ALL NIGHT . ALL MEDS WERE GIVEN PER EMAR. BED IN LOWER POSITION ,CALL LIGHT WITHIN REACH. WILL CONTINUE TO MONITOR.
--- NOTE | 2021-09-18 19:26 | NUR ---
SHIFT SUMMARY PATIENT A&O X4. COOPERATIVE WITH CARE. RECEIVED BED BATH TODAY. PATIENT WORKED WITH PT. PATIENT GETS ANXIOUS WITH HIS HEART RATE INCREASING DURING ACTIVITY AND MONITORS IT WITH HIS PERSONAL PULSE OX. PT IS RECOMMENDING PATIENT USE BSC. PATIENT HESITANT AT THIS TIME TO USE BSC AND CONTINUES TO USE BEDPAN. PATIENT HAS A CONDOM CATHETER IN PLACE. BED IN LOW POSITION WITH CALL LIGHT IN REACH. WILL CONTINUE TO MONITOR.
--- NOTE | 2021-09-19 04:16 | NUR ---
SHIFT SUMMARY PT IS AA0X4, STILL ON AIRVO 40L/50% FIO2. DAY SHIFT RN TOLD ME THAT PT'S BP WAS IN THE LOW SIDE. AFTER RECHECKING VS, BP WAS STILL LOW AND PT WAS CONCERNED ABOUR HIS BP.MD WAS NOTIFIED AND 250CC NS BOLUS WAS GIVEN ORDERED. NO CHANGE , MD WAS CALLED WITH RECHECK BP. NO NEW ORDER. CONTINUE TO MONITOR AND CALL IF MAP IS BELOW 65.IN THE LAST VS CHCK ,BP HAS IMPROVED. PT IS RESTIMG COMFORTABLY IN BED. CALL LIGHT WITHIN REACH .WILL CONTINUE TO MONITOR.
--- NOTE | 2021-09-19 18:49 | NUR ---
SHIFT SUMMARY: PT A/O X 4 STANDBY ASSIST PLEASANT AND COOPERATIVE. PT CONTINUES TO BE ON AIRVO 40/50. PT ABLE TO SIT AT BEDSIDE, BUT DESATS TO 86%, TAKES ABOUT 1-2 MINUTES TO RECOVER. BECOMES SOB WITH ACTIVITY. PT ENCOURAGED TO GET TO CHAIR AT MEALS. HE DID TX TO CHAIR AT BREAKFAST BUT DID NOT STAY IN CHAIR FOR LONG. PT REPORTS HEARTBURN BUT DENIES NEED FOR MAALOX AT THIS TIME. PT RASH IS RESOLVED AND MICONAZOLE POWDER CAN BE DC'D. PT ALSO REQUESTS HIS HOME MEDICATION MACI/MAG BE DC'D SINCE HE IS TAKING SO MANY MEDICATIONS. MEDICATIONS HELD PER HIS REQUEST. NO ACUTE CHANGES TODAY.
--- NOTE | 2021-09-20 04:53 | NUR ---
SHIFT SUMMARY NO ACUTE EVENTS THROUGH THE NIGHT. PT IS AA0X4.PT'S BP WAS STABLE COMPARE TO YESTERDAY. LAST ONE WAS 128/67. PT REMAINS ON SUPPLEMANTAL OXYGEN VIA AIRVO 40LPM AT 50%FIO2 VIA HUMIDIFIER.LUE POWERGLIDE IN PLACE, CONDOM CATH DRAINING URINE VIA GRCVITY. ALL MEDS WERE GIVEN PER EMAR. BED IN LOWER POSITION,CALL LIGHT WITHIN REACH. WILL CONTINUE TO MONITOR.
--- NOTE | 2021-09-20 12:25 | NUR ---
PT HAD BM WITH STOOL APPEARING FORMED BUT BLACK AND PASTY/TARRY. NOTIFIED DR. PRAKASH AND RECEIVED ORDER TO [facility] STOOL. SPECIMENT SENT TO LAB.
--- NOTE | 2021-09-20 18:43 | NUR ---
SHIFT SUMMARY: PT A/O X 4 STANDBY ASSIST WITH WALKER. PT IS COOPERATIVE WITH CARE. PT HAS EXHIBITED ANXIETY T/OUT THE DAY. HE HAS REPORTED HEARTBURN OFF AND ON THROUGH OUT THE DAY AND REPORTS MAALOX IS EFFECTIVE IN TREATING SYMPTOMS. PT REPORTS HE THINKS HIS OXYGEN IS CAUSING THE DISTRESS AND I ATTEMPTED TO EDUCATE HIM ON CAUSES OF HEARTBURN AND OXYGEN LIKELY NOT CAUSING SYMPTOMS. HE CONTINUED TO WORRY AND REQUESTED RT TO TALK TO HIM. RT ZEV NOTIFIED OF REQUEST. PT WOULD START TO HYPERVENTILATE AND WORRY ABOUT LAB RESULTS, OTHER ISSUES AND HAVE TO BE REMINDED TO CALM DOWN. SYMPTOMS OF HEARTBURN APPEARED TO HAPPEN NEAR THESE EPISODES OF ANXIETY. PT CONTINUES TO BE ON AIRVO 40/50. SATS ARE BETWEEN 92-96 AT REST AND WITH EXERTION DROP TO 87, WITH RECOVERY QUICK. GUIAC RESULTS UNAVAILABLE AT SHIFT END. WILL NOTIFY ONCOMING RN.
--- NOTE | 2021-09-21 03:56 | NUR ---
patient has been extremely panicked and feeling sob throughout the shift. VSS early in shift, AIRVO at 50% 02 and 40L, and in addition patient is wearing a non rebreather at 15 liters.
[2021-09-21 05:59] LABS: Source, Urine Catheter
[2021-09-21 06:19] LABS: Appearance, Urine Clear (Clear); Bilirubin, Urine Neg (Neg); Blood, Urine Neg (Neg); Color, Urine Yellow (P-Yellow); Glucose Qualitative, Urine Neg (Neg); Ketones, Urine Neg (Neg); Leukocyte Esterase, Urine Neg (Neg); Nitrite, Urine Neg (Neg); Protein, Urine Neg (Neg); Urobilinogen, Urine NORM (Normal)
[2021-09-21 06:33] LABS: Mean Corpuscular HGB 30.6 pg (26.0-34.0); Mean Corpuscular HGB Conc 29.4 g/dL (31.5-36.5); Mean Corpuscular Volume 104 fL (80-100); Mean Platelet Volume 11.8 fL (9.1-12.4); NRBC ABSOLUTE 1.11 K/mm3 (0.00-0.02); NRBC Auto 3.7 /100 WBC (0.0-0.2); Platelet Count 163 K/mm3 (150-400); RDW Coefficient Variation 18.4 % (11.7-14.2); RDW Standard Deviation 65.4 fL (35.1-46.3); White Blood Cell Count 29.71 K/mm3 (4.00-11.30)
[2021-09-21 06:38] LABS: Hematocrit 17.7 % (37.0-53.0); Hemoglobin 5.2 g/dL (13.5-17.5)
[2021-09-21 06:40] LABS: Bun/Creatinine Ratio 55.8 (12.0-20.0); Calcium, Blood 7.8 mg/dL (8.5-10.1); Creatinine, Blood 1.29 mg/dL (0.60-1.20); Potassium, Blood 7.4 mmol/L (3.5-5.5)
[2021-09-21 06:55] LABS: International Normalized Ratio 1.4; Prothrombin Time Results 14.4 Sec (9.7-11.5)
[2021-09-21 07:37] LABS: PCO2 Arterial 49.4 mmHg (35-45); PO2 Arterial 74.2 mmHg (80-100)
[2021-09-21 07:40] LABS: pH Blood Arterial 6.92 (7.35-7.45)
--- NOTE | 2021-09-21 09:40 | NUR ---
INITIAL ASSESSMENT PATIENT INTUBATED AND ON SEDATION. PATIENT MOVED L HAND SLIGHTLY WHEN RT PERFORMING ABG. PATIENT ALSO TURNED HEAD SLIGHTLY TO R SIDE. R PUPIL 4+ IN SIZE, L PUPIL 3+ IN SIZE. BOTH REACT BRISKLY TO LIGHT. PATIENT AFEBRILE. NO SIGNS OF PAIN NOTED. LEFT LOWER LUNG LOBE COARSE; ALL OTHER LOBES CLEAR TO AUSCULTATION. ETT 8.0 AND 26 AT LIP. VENT SETTINGS AC 16, TV 500, PEEP 5 AND 100% FIO2. PATIENT IN FIRST DEGREE HB AND BBB. HR 60S TO 70S. PATIENT ON PRESSORS FOR HYPOTENSION. OG TO LIS. DATE OF LAST BM YESTERDAY. PATIENT NPO AT THIS TIME. DORSEY IN PLACE DRAINING YELLOW COLORED URINE. SKIN FRAGILE AND PALE. SCATTERED BRUISES NOTED. ABDOMEN ALMOST ENTIRELY ONE LARGE BRUISE. LEVOPHED INFUSING AT 30 MCG/ MINUTE, EPINEPHRINE AT 20 MCG/ MINUTE, VASOPRESSIN AT 0.04 UNITS/ MINUTE, INSULIN AT 3 UNITS/ HOUR, SODIUM BICARB AT 125 MLS/ HOUR, PROPOFOL AT 20 MCG/ KG/ MINUTE. BED LOW. FAMILY CALLED IN AND IS AT BEDSIDE.
[2021-09-21 10:06] LABS: Magnesium, Blood 4.5 mg/dL (1.6-2.4)
[2021-09-21 11:45] LABS: Albumin, Blood 1.4 g/dL (3.4-5.0); Albumin/Globulin Ratio 0.8 (0.8-1.8); Bilirubin, Total 0.8 mg/dL (0.1-1.0); Bun/Creatinine Ratio 46.9 (12.0-20.0); Calcium, Blood 7.7 mg/dL (8.5-10.1); Creatinine, Blood 1.47 mg/dL (0.60-1.20); Globulin, Blood 1.8 g/dL (2.2-4.0); Phosphorus, Blood 12.1 mg/dL (2.5-4.9); Potassium, Blood 7.2 mmol/L (3.5-5.5); Total Protein, Blood 3.2 g/dL (6.4-8.2); Troponin I 0.711 ng/mL (0.000-0.040)
--- NOTE | 2021-09-21 12:38 | NUR ---
PATIENT AFEBRILE. NO SIGNS OF PAIN NOTED. HR IN THE 60S. SBP LOW 100S TO 120S. EPI ON SB, LEVOPHED AT 15 MCG/ MINUTE, VASOPRESSIN AT 0.04 UNITS/ MINUTE. PEEP INCREASED FROM 5 TO 10. OLIVA AWARE OF SATS 70S TO 80S. DR. BAPTISTE ALSO AWARE OF MINIMAL URINE OUTPUT. WILL CONTINUE TO MONITOR..
[2021-09-21 12:54] LABS: Stool Occult Blood Guaiac 1 Pos (Neg)
[2021-09-21 13:35] LABS: Bun/Creatinine Ratio 42.7 (12.0-20.0); Calcium, Blood 7.1 mg/dL (8.5-10.1); Creatinine, Blood 1.71 mg/dL (0.60-1.20); Potassium, Blood 6.7 mmol/L (3.5-5.5)
[2021-09-21 15:50] LABS: PCO2 Arterial 59.3 mmHg (35-45); PO2 Arterial 60.2 mmHg (80-100); pH Blood Arterial 7.11 (7.35-7.45)
--- NOTE | 2021-09-21 15:51 | NUR ---
PATIENT AFEBRILE. NO SIGNS OF PAIN NOTED. HR IN THE 60S. SBP IN THE 120S. EPI ON SB, LEVOPHED AT 14 MCG/ MINUTE AND VASOPRESSIN REMAINS AT SAME RATE. PATIENT ON ACVC+ 22, TV 500, TI 0.95, PEEP 12, AND 100% FIO2. SPUTUM FROM ETT SMALL, THIN AND BLOODY. WILL CONTINUE TO MONITOR.
[2021-09-21 19:01] LABS: Bun/Creatinine Ratio 36.7 (12.0-20.0); Calcium, Blood 8.7 mg/dL (8.5-10.1); Creatinine, Blood 1.96 mg/dL (0.60-1.20); Potassium, Blood 6.8 mmol/L (3.5-5.5); Troponin I 2.56 ng/mL (0.000-0.040)
[2021-09-21 19:07] LABS: D-Dimer, Quantitative 6.22 mg/L FEU (0.00-0.52); International Normalized Ratio 2.31
--- NOTE | 2021-09-21 19:15 | NUR ---
SHIFT SUMMARY PATIENT REMAINED INTUBATED AND SEDATED. PATIENT MOVED HIS HEAD AND ARMS AT BEGINNING OF SHIFT BEFORE BEING PLACED ON SEDATION. PATIENT REMAINED AFEBRILE. PATIENT ON ACVC+ SETTINGS OF 22, TI 0.95, TV 500, PEEP 12, 100% FIO2 AT END OF SHIFT. PATIENT HAD NO SPUTUM FROM ETT THIS AM AND ENDED WITH SMALL AMOUNT OF THIN, BLOODY SPUTUM FROM ETT. EPINEPHRINE PLACED ON SB THIS SHIFT. LEVOPHED DOWN TO 8 MCG/ MINUTE BY END OF SHIFT. VASOPRESSIN REMAINED AT 0.04 UNITS/ MINUTE. NO BM THIS SHIFT. PATIENT REMAINED NPO WITH OG TO LIS. DORSEY ONLY DRAINED 220 MLS OF YELLOW COLORED URINE FROM DORSEY. NO CHANGES TO SKIN NOTED. PROPOFOL AT 25 MCG/ KG/ MINUTE. SODIUM BICARB AT 125 MLS/ HOUR. BLOOD SUGARS RANGED FROM 181 TO 367. INSULIN DRIP CURRENTLY AT 18 UNITS/ HOUR AND WAS UP TO MAX OF 21 UNITS/ HOUR. PATIENT RECEIVED 3 G OF CALCIUM THIS SHIFT. PATIENT RECEIVED 4 UNITS OF RBCS. ECHO PERFORMED THIS SHIFT. CT PERFORMED THIS SHIFT. REPORT GIVEN TO ASSUMING DRESS DRAPER NURSE.
--- NOTE | 2021-09-21 20:00 | NUR ---
ASSUMED CARE PT INTUBATED AND SEDATED. PROPOFOL 25MCG/KG/MIN, NO PURPOSEFUL MOVEMENTS, DOES NOT RESPOND TO ANY STIMULI. TEMP 96.4. SYNCHRONOUS WITH VENT: SETTINGS AC/VC+ RR 22, TI 0.95, TV 500, PEEP 12, FIO2 100%, SPO2 IN 80'S. LUNGS ARE COARSE WITH FRICTION RUB IN LEFT UPPER LOBE, SECRETIONS VIA ETT MINIMAL AND BLOODY. ETT 8.0, 26CM AT LIP. 1ST DEGREE HB WITH BBB, RATE IN 70'S. LEVOPHED AT 10MCG/KG/MIN, VASO 0.04 UNITS/MIN, SBP 120-140'S, MAP >65. PEDAL PULSED OBTAINED BY DOPPLER. EXTREMITIES ALL COOL TO TOUCH. OG TO LIS, YELLOW OUTPUT. ABDOMEN IS COVERED BY LARGE DARK PURPLE BRUISING AND IS FIRM. TEMP DORSEY PATENT, DRAINING MINIMAL URINE, YELLOW AND CLOUDY. ART LINE TO FEMORAL ARTERY, ZEROED. RIGHT IJ WNL, SHAWN PG WNL. ORDERS REVIEWED. CALL PLACED TO DR. BAPTISTE @ 1929 RE: 1824 LABS. ELEVATED PT OF 23.0, LOW FIBRINOGEN 116, ELEVATED D-DIMER 6.22. HGB 10.3, K+ 6.8, TROPONIN 2.560. ORDERS GIVEN FOR RT COMMUNICATION TO INCREASE PEEP NEEDED TO MAINTAIN SPO2 LEVELS. PT'S SON, ANTOINETTE, UPDATED ON PT STATUS AT 1944.
--- NOTE | 2021-09-21 23:30 | NUR ---
CALL TO DR. HENNING RE: LOW BLOOD GLUCOSE OF 66, INSULIN GTT PLACED ON SB. ORDERS GIVEN FOR D5 1/2 NS WITH 2 AMPS OF BICARB X2L. WILL CONTINUE TO MONITOR CBG'S Q1 HOUR.
[2021-09-22 01:25] LABS: Calcium, Blood 7.8 mg/dL (8.5-10.1); Creatinine, Blood 2.26 mg/dL (0.60-1.20); Potassium, Blood 7.2 mmol/L (3.5-5.5)
--- NOTE | 2021-09-22 01:30 | NUR ---
CALL PLACED TO DR. HENNING RE: CRITICAL POTASSIUM OF 7.2. ORDERS GIVEN FOR 5 UNITS REGULAR INSULIN NOW, ONE AMP OF D50, AND CONSULT TO DR. COY RE: HYPERKALEMIA/RENAL FAILURE.
[2021-09-22 05:21] LABS: PCO2 Arterial 56.3 mmHg (35-45); pH Blood Arterial 7.27 (7.35-7.45)
[2021-09-22 05:22] LABS: PO2 Arterial 58.9 mmHg (80-100)
--- NOTE | 2021-09-22 06:35 | NUR ---
PT REMAINS INTUBATED AND SEDATED, PROPOFOL 25MCG/KG/MIN. NO PURPOSEFUL MOVEMENTS ALL SHIFT, SYNCHRONOUS WITH VENT. TEMP INCREASED TO 98.2 VENT: AC/VC+ 22/TI 0.95/500/16/100%, SPO2 IN 80'S. LUNGS REMAINED COARSE WITH RUB ON RIGHT UPPER LOBES. SCANT AMOUNT OF THIN, BLOODY SECRETIONS WITH ETT SUCTION. HR REMAINS FIRST DEGREE BLOCK WITH BBB, RATE IN 70'S, SBP 140-150'S, LEVOPHED AT 5MCG/MIN, VASOPRESSIN 0.04 UNITS/MIN. INSULIN HAS REMAINED OFF SINCE 2299 D/T CBG OF 66. BICARB WITH D5 1/2NS RUNNING AT 100ML/HR. OG TO LIS WITH MINIMAL OUT THIS SHIFT. ABDOMEN REMAINS FIRM WITH LARGE DARK PURPLE BRUISING. TEMP DORSEY PATENT DRAINING TO GRAVITY, 100ML JOSE, CLOUDY URINE OUT THIS SHIFT. AM LABS PENDING. CONSULT TO [facility] FOR HYPERKALEMIA/RENAL FAILURE AFTER LABS RECEIVED. WILL REPORT TO ONCOMING SHIFT. TO ONCOMING SHIFT.
[2021-09-22 06:43] LABS: Bun/Creatinine Ratio 30.6 (12.0-20.0); Calcium, Blood 7.4 mg/dL (8.5-10.1); Creatinine, Blood 2.55 mg/dL (0.60-1.20); Vancomycin, Random 17.8 ug/mL
[2021-09-22 06:57] LABS: Potassium, Blood 7.3 mmol/L (3.5-5.5)
[2021-09-22 08:07] LABS: BASOPHILS ABSOLUTE AUTO 0.09 K/mm3 (0.00-0.23); BASOPHILS PERCENT AUTO 0 % (0-2); Hematocrit 26.6 % (37.0-53.0); Hemoglobin 9.3 g/dL (13.5-17.5); Mean Corpuscular HGB 30.9 pg (26.0-34.0); NRBC ABSOLUTE 1.15 K/mm3 (0.00-0.02); NRBC Auto 5.4 /100 WBC (0.0-0.2); Platelet Count 63 K/mm3 (150-400); RDW Coefficient Variation 16.6 % (11.7-14.2); RDW Standard Deviation 51.7 fL (35.1-46.3); Red Blood Cell Count 3.01 M/mm3 (4.30-5.90); White Blood Cell Count 21.27 K/mm3 (4.00-11.30)
[2021-09-22 08:14] LABS: EOSINOPHILS ABSOLUTE AUTO 3.26 K/mm3 (0.00-0.68); EOSINOPHILS PERCENT AUTO 15 % (0-6); IMMATURE GRAN PERCENT AUTO 4 % (0-1); LYMPHOCYTES ABSOLUTE AUTO 1.03 K/mm3 (0.84-5.20); LYMPHOCYTES PERCENT AUTO 5 % (21-46); MONOCYTES ABSOLUTE AUTO 0.45 K/mm3 (0.16-1.47); MONOCYTES PERCENT AUTO 2 % (4-13); Mean Corpuscular Volume 88 fL (80-100); NEUTROPHILS ABSOLUTE AUTO 15.54 K/mm3 (1.96-9.15); NEUTROPHILS PERCENT AUTO 73 % (41-73)
--- NOTE | 2021-09-22 09:00 | NUR ---
DR. TAN UPDATED ON PATIENT STATUS. INFORMED THAT [facility] CONSULTED THIS AM FOR POTASSIUM OF 7.3 AND INCREASING KIDNEY LABS. INFORMED THAT DR. COY CHANGED MAINTENANCE FLUID AND ORDERED FOR BICARB PUSH, 10 UNITS INSULIN AND D50. INFORMED THAT PATIENT HAD ONLY 100 MLS OF URINE OUTPUT ON [employer] SUPERVISOR. INFORMED THAT SBP IN THE 150S BUT THAT DIASTOLIC IN THE 40S, THEREFORE LEAVING MAP IN THE 60S. INFORMED THAT PATIENT ON VASOPRESSIN AND ON LEVOPHED AT 5 MCG/ MINUTE. INFORMED THAT INSULIN DRIP ON SB. INFORMED THAT DR. COY ALSO ORDERED FOR ALBUMIN AND BUMEX. INFORMED OF AM ABG RESULTS.
--- NOTE | 2021-09-22 09:20 | NUR ---
INITIAL ASSESSMENT PATIENT INTUBATED AND SEDATED. PATIENT UNRESPONSIVE. SCLERAL EDEMA NOTED. AFEBRILE. NO SIGNS OF PAIN NOTED. PATIENT ON VENT SETTINGS AC VC+ 22, TV 500, TI 0.90, PEEP 16 AND 100% FIO2. ALL LOBES DIMINISHED WITH EXPIRATION. RIGHT LOWER LOBE COARSE. SMALL AMOUNT OF BLOODLY ORAL AND ETT SECRETIONS NOTED. PATIENT IN SR WITH BBB. HR 70S TO 80S. SBP IN THE 150S. DIASTOLIC IN THE 40S. MAP IN 60S. DR. TAN AWARE. NONPITTING EDEMA NOTED TO BLES. SCDS IN PLACE. ABDOMEN DISTENDED, FIRM, WITH HYPOACTIVE BS NOTED. ALMOST ENTIRE ABDOMEN BRUISED AND [address] TAN ASSESSED HEMATOMAS THIS AM. OG TO LIS. LAST BM ON 09/20. DORSEY DRAINING SCANT AMOUNT OF TEA COLORED URINE WITH SEDIMENT NOTED. SKIN FRAGILE, PALE AND COOL. SCATTERED BRUISES NOTED T/O BODY. LEVOPHED AT 4 MCG/ MINUTE, VASOPRESSIN AT 0.04 UNITS/ MINUTE, EPI ON SB, PROPOFOL AT 25 MCG/ KG/ MINUTE, INSULIN DRIP ON SB, D5 1/2 NS SODIUM BICARB AT 100 MLS/ HOUR. PATIENT HAS RECEIVED ALBUMIN, BUMEX, D50, INSULIN AND BICARB PUSH THIS AM. DR. COY CONSULTED THIS AM. BED LOW. WILL CONTINUE TO MONITOR PATIENT FREQUENTLY THROUGHOUT SHIFT.
--- NOTE | 2021-09-22 09:23 | NUR ---
VIOLET LIEBERMAN, UPDATED ON PATIENT STATUS.
[2021-09-22 10:02] LABS: PCO2 Arterial 52.4 mmHg (35-45)
[2021-09-22 10:03] LABS: pH Blood Arterial 7.26 (7.35-7.45)
[2021-09-22 10:04] LABS: PO2 Arterial 47.6 mmHg (80-100)
--- NOTE | 2021-09-22 10:26 | NUR ---
PARALYTICS ORDER RECEIVED FROM DR. TAN TO PARALYZE PT FOR VENT COMPLIANCE/OXYGENATION. ORDER TO PUSH 80MG ROCURONIUM IV NOW AND START NIMBEX GTT.
--- NOTE | 2021-09-22 10:30 | NUR ---
80 MG ROCURONIUM GIVEN FROM [facility] KIT PER DR. TAN.
--- NOTE | 2021-09-22 12:00 | NUR ---
PATIENT AFEBRILE. BIS IN THE 40S. NIMBEX AT 2 MCG/ KG/ MINUTE. SBP IN THE 150S. MAPS IN THE 60S. VASOPRESSIN AT 0.04 UNITS/ MINUTE AND LEVOPHED AT 8 MCG/ MINUTE. HR 80S TO 90S. NO OTHER ACUTE CHANGES TO NOTE ON AT THIS TIME. WILL CONTINUE TO MONITOR.
[2021-09-22 12:18] LABS: PCO2 Arterial 57.9 mmHg (35-45); PO2 Arterial 58.7 mmHg (80-100)
[2021-09-22 12:21] LABS: pH Blood Arterial 7.19 (7.35-7.45)
[2021-09-22 12:21] LABS: Hematocrit 26.7 % (37.0-53.0); Hemoglobin 9.3 g/dL (13.5-17.5); Mean Corpuscular HGB 31.4 pg (26.0-34.0); Mean Corpuscular HGB Conc 34.8 g/dL (31.5-36.5); Mean Corpuscular Volume 90 fL (80-100); NRBC ABSOLUTE 1.09 K/mm3 (0.00-0.02); NRBC Auto 5.5 /100 WBC (0.0-0.2); Platelet Count 52 K/mm3 (150-400); RDW Coefficient Variation 16.7 % (11.7-14.2); RDW Standard Deviation 52.6 fL (35.1-46.3); Red Blood Cell Count 2.96 M/mm3 (4.30-5.90); White Blood Cell Count 19.74 K/mm3 (4.00-11.30)
[2021-09-22 13:29] LABS: BAND PERCENT MAN 14 % (0-8); BASOPHILS PERCENT MAN 0 % (0-2); EOSINOPHILS PERCENT MAN 0 % (0-6); LYMPHOCYTES ABSOLUTE MAN 0.39 K/mm3 (0.84-5.20); LYMPHOCYTES PERCENT MAN 2 % (21-46); METAMYELOCYTE ABSOLUTE MAN 0.19 K/mm3 (0.00-0.00); METAMYELOCYTE PERCENT MAN 1 % (0-0); MONOCYTES ABSOLUTE MAN 0.19 K/mm3 (0.16-1.47); MONOCYTES PERCENT MAN 1 % (4-13); MYELOCYTE ABSOLUTE MAN 0.39 K/mm3 (0.00-0.00); MYELOCYTE PERCENT MAN 2 % (0-0); NEUTROPHILS ABSOLUTE MAN 18.55 K/mm3 (1.96-9.15); SEG NEUTROPHILS PERCENT MAN 80 % (41-73); TOTAL CELLS COUNTED 100
[2021-09-22 13:36] LABS: Bun/Creatinine Ratio 30.7 (12.0-20.0); Calcium, Blood 6.9 mg/dL (8.5-10.1); Creatinine, Blood 2.9 mg/dL (0.60-1.20); Potassium, Blood 7.3 mmol/L (3.5-5.5)
--- NOTE | 2021-09-22 13:51 | NUR ---
DR. COY INFORMED THAT DR. TAN SPOKE WITH PATIENT'S FAMILY AND DOES NOT WANT TO PROCEED WITH DIALYSIS AT THIS TIME. INFORMED THAT POTASSIUM 7.3, SODIUM 131, CHLORIDE 92, CO2 OF 13, CALCIUM OF 6.9. DR. COY ORDERED FOR 2 AMPS SODIUM BICARB AND FOR A STAT ABG.
[2021-09-22 14:04] LABS: PCO2 Arterial 53.6 mmHg (35-45); PO2 Arterial 56.7 mmHg (80-100)
[2021-09-22 14:05] LABS: pH Blood Arterial 7.23 (7.35-7.45)
--- NOTE | 2021-09-22 14:21 | NUR ---
DR. COY CALLED WITH ABG RESULTS. ORDER TO CHANGE MAINTENANCE FLUID.
--- NOTE | 2021-09-22 14:49 | NUR ---
DR. TAN INFORMED THAT PATIENT O2 SATS CONTINUE TO BE LOW. INFORMED THAT HR IS CORRELATING AND WAVEFORM LOOKS APPROPRIATE. NO ORDERS OBTAINED AT THIS TIME.
--- NOTE | 2021-09-22 15:00 | NUR ---
DR. TAN HERE TO SEE PATIENT. ORDER FOR ABG IN ONE HOUR. NO OTHER ORDERS OBTAINED AT THIS TIME.
--- NOTE | 2021-09-22 16:00 | NUR ---
AC VC+ CHANGED FROM 22 TO 24 PER ABG. LEVOPHED AT 8 MCG/ MINUTE. D5W 3 AMPS SODIUM BICARB INFUSING AT 100 MLS/ HOUR. NO OTHER ACUTE CHANGES TO NOTE ON AT THIS TIME.
[2021-09-22 16:35] LABS: PCO2 Arterial 52.9 mmHg (35-45)
[2021-09-22 16:36] LABS: pH Blood Arterial 7.28 (7.35-7.45)
--- NOTE | 2021-09-22 19:00 | NUR ---
ASSUMED CARE ASSUMED CARE OF PATIENT. INTUBATED- AC/VC+ 24/500/16/FIO2 100%. RR 24. SEDATD WITH PROPOFOL AT 25MCG/KG/MIN. BIS SHOWS 45-50. NIMBEX AT 1MCG/KG/MIN. T04 10/06. NO SPONTANEOUS RESPIRATIONS OR MOVEMENT NOTED. MONITOR SHOWS NSR WITH BBB, RATE 70s. BP STABLE WITH LEVOPHED AT 7MCG/MIN TO MAINTAIN MAP >65. VASOPRESSIN INFUSING AT 0.04UNITS/MIN. AFEBRILE. D5+ 3 AMPS BICARB AT 100CC/HR. RIJ CL AND RIGHT FEMORAL ARTERIAL LINE NOTED- BOTH DRSGS WITH SLIGHT AMOUNTS OF OLD BLOOD NOTED. OG TO LIS WITH SMALL AMOUNT OF DRAINAGE. DORSEY PATENT AND DRAINING TO GRAVITY- SCANT TEA COLORED DRAINAGE. SCDs TO BLE. SEE SHIFT ASSESSMENT FOR FULL ASSESSMENT.
--- NOTE | 2021-09-22 19:15 | NUR ---
SHIFT SUMMARY PATIENT REMAINED INTUBATED AND SEDATED. PATIENT PARALYZED THIS SHIFT TO HELP WITH HIGH PEAKS. BIS 4OS TO 50S. TOF 0/4; NIMBEX DECREASED THROUGHOUT SHIFT. AC VC + 24, TI 0.90, TV 500, PEEP 16 AND 100% FIO2. SATURATIONS READING MOSTLY 50S TO 60S. MULTIPLE ABGS COLLECTED TODAY AND SHOWED O2 SATS BETTER THAN MONITOR READINGS. DIASTOLIC BPS REMAINED LOW AND THEREFORE MAPS. PATIENT REMAINED ON LEVOPHED AND VASOPRESSIN. OG REMAINED TO LIS. PATIENT REMAINED NPO. NO BM THIS SHIFT. DORSEY DRAINED ONLY 70 MLS OF TEA COLORED URINE WITH SEDIMENT NOTED. NO CHANGES TO SKIN NOTED. PATIENT REPOSITIONED T/O SHIFT. NIMBEX AT 1 MCG/ KG/ MINUTE, LEVOPHED AT 7 MCG/ MINUTE, VASOPRESSIN AT 0.04 UNITS/ MINUTE, PROPOFOL AT 25 MCG/ KG/ MINUTE AND D5W 150 MEQ SODIUM BICARB INFUSING AT 100 MLS/ HOUR. PATIENT RECEIVED ALBUMIN, BUMEX, 10 UNITS INSULIN, D50, AND 3 PUSHES OF BICARB THIS SHIFT. BLOOD SUGARS RANGED FROM 172 TO 225 AND PATIENT PLACED ON Q4H HIGH SLIDING SCALE INSULIN. DR. TAN SPOKE WITH PATIENT'S SON AND IT IS CHOSEN AT THIS TIME NOT TO PROCEED WITH DIALYSIS. BED LOW. REPORT HAS BEEN GIVEN TO ASSUMING ACCOUNTS PAYABLE ASSISTANT NURSE.
[2021-09-22 19:40] LABS: Bun/Creatinine Ratio 27.2 (12.0-20.0); Calcium, Blood 6.6 mg/dL (8.5-10.1); Creatinine, Blood 3.31 mg/dL (0.60-1.20); Potassium, Blood 7.2 mmol/L (3.5-5.5)
--- NOTE | 2021-09-22 19:50 | NUR ---
CRITICAL POTASSIUM DR. TAN NOTIFIED OF CRITICAL POTASSIUM OF 7.2. NEW ORDERS RECEIVED.
[2021-09-23 04:12] LABS: Hematocrit 22.8 % (37.0-53.0); Mean Corpuscular HGB 32.4 pg (26.0-34.0); Mean Corpuscular HGB Conc 35.1 g/dL (31.5-36.5); Mean Corpuscular Volume 92 fL (80-100); NRBC ABSOLUTE 2.02 K/mm3 (0.00-0.02); NRBC Auto 12.9 /100 WBC (0.0-0.2); RDW Coefficient Variation 17.1 % (11.7-14.2); RDW Standard Deviation 55.1 fL (35.1-46.3); Red Blood Cell Count 2.47 M/mm3 (4.30-5.90)
[2021-09-23 04:18] LABS: Mean Platelet Volume 13.5 fL (9.1-12.4)
[2021-09-23 04:19] LABS: Platelet Count 40 K/mm3 (150-400)
[2021-09-23 04:48] LABS: CPK Creatine Kinase 682 U/L (39-308); Magnesium, Blood 4.8 mg/dL (1.6-2.4)
[2021-09-23 05:37] LABS: PCO2 Arterial 55.4 mmHg (35-45); pH Blood Arterial 7.19 (7.35-7.45)
[2021-09-23 05:38] LABS: PO2 Arterial 63.5 mmHg (80-100)
[2021-09-23 05:46] LABS: BAND PERCENT MAN 12 % (0-8); BASOPHILS PERCENT MAN 0 % (0-2); EOSINOPHILS PERCENT MAN 0 % (0-6); LYMPHOCYTES ABSOLUTE MAN 1.09 K/mm3 (0.84-5.20); LYMPHOCYTES PERCENT MAN 7 % (21-46); METAMYELOCYTE ABSOLUTE MAN 0.15 K/mm3 (0.00-0.00); METAMYELOCYTE PERCENT MAN 1 % (0-0); MONOCYTES ABSOLUTE MAN 0.15 K/mm3 (0.16-1.47); MONOCYTES PERCENT MAN 1 % (4-13); MYELOCYTE ABSOLUTE MAN 0.47 K/mm3 (0.00-0.00); MYELOCYTE PERCENT MAN 3 % (0-0); NEUTROPHILS ABSOLUTE MAN 13.81 K/mm3 (1.96-9.15); SEG NEUTROPHILS PERCENT MAN 76 % (41-73); TOTAL CELLS COUNTED 100
[2021-09-23 06:19] LABS: Alanine Aminotransfer (ALT/SGP 9723 U/L (12-78); Albumin, Blood 1.2 g/dL (3.4-5.0); Albumin/Globulin Ratio 0.7 (0.8-1.8); Alk Phos 226 U/L (50-136); Amylase, Blood >6500 U/L (25-115); Anion Gap 21 mmol/L (6-16); Aspartate Aminotrans (AST/SGOT 11668 U/L (12-37); Bilirubin, Direct 2.5 mg/dL (0.0-0.3); Bilirubin, Indirect 0.8 mg/dL (0.1-0.7); Bilirubin, Total 3.3 mg/dL (0.1-1.0); Blood Urea Nitrogen 98 mg/dL (8-24); Bun/Creatinine Ratio 26.5 (12.0-20.0); CO2, Blood 22 mmol/L (21-32); Calcium, Blood 6.2 mg/dL (8.5-10.1); Chloride, Blood 87 mmol/L (98-108); Globulin, Blood 1.7 g/dL (2.2-4.0); Glomerular Filtration Rate 16 (60-); Glucose, Blood 260 mg/dL (70-99); Phosphorus, Blood 11.2 mg/dL (2.5-4.9); Sodium, Blood 130 mmol/L (136-145); Total Protein, Blood 2.9 g/dL (6.4-8.2); Vancomycin, Random 14.7 ug/mL
--- NOTE | 2021-09-23 06:45 | NUR ---
SHIFT SUMMARY PT REMAINS INTUBATED- VENT SETTINGS UNCHANGED. REMAINS SEDATED WITH PROPOFOL AT 25MCG/KG/MIN. BIS MOSTLY 48-60 DURING NOC. NIMBEX 1.0MCG/KG/MIN DURING NOC WITH TO4 10/06. NO SPONTANEOUS MOVEMENT OR RESPIRATIONS NOTED. LEVOPHED TITRATED UP TO 28MCG/MIN THIS AM IN ATTEMPT TO INCREASE MAP TO 65. MAP NOW 50s VIA RIGHT FEMORAL ARTERIAL LINE. MONITOR SHOWS NSR WITH BBB, RATE 80s. AFEBRILE. OG CLAMPED AT THIS TIME. DORSEY PATENT- DRAINING SCANT URINE. VASOPRESSIN CONTINUES AT 0.04UNITS/MIN. BICARB GTT CONTINUES AT 100CC/HR. PLAN TO CALL PT'S SON TO INFORM HIM OF PT'S DECLINE IN CONDITION. REPORT GIVEN TO ONCOMING RN.
--- NOTE | 2021-09-23 08:14 | NUR ---
SISTER INLAW AT BEDSIDE, FAMILY CONTACTED WITH AM, JULIETA CODITION DECLINING, MULTI ORGAN FAILURE, 0/4 TRAIN, DOPPLER PULSES, NORESPONSE TO STIMULUS, PUPILS CONSTRICT SLUGGISH, MAP 40-50, SBP 80-110, PALLIATIVE CARE NURSES CONTACTED, AWARE, WCTM
--- NOTE | 2021-09-23 09:16 | NUR ---
FAMILY AT BEDSIDE, DR TO TALKED WITH FAMILY, AGREED FOR COMFORT CARE TODAY, DECREASING TREATMENT NOW
--- NOTE | 2021-09-23 09:28 | NUR ---
PALLIATIVE CARE NURSE SPEAKING WITH FAMILY NOW
--- NOTE | 2021-09-23 09:46 | NUR ---
0927 PATIENT EXTUBATED, FAMILY AT BEDSIDE, PATIENT NON RESPONSIVE, VASOPRESSIN, NIMBEX,LEVOPHED, PROPOFOL, STOPPED, MEDICATED WITH 5 MG MORPHINE
--- NOTE | 2021-09-23 10:24 | NUR ---
patient at 0954, family present at bedside, family (son-Buzz) tok patient belongings home, family wanting patient to go to [facility], pupils non reactive, no respirations, no heart beat at 0954, patient was changed to comfort care at 0930, extubated at 0945
--- NOTE | 2021-09-23 10:43 | NUR ---
Received call from Primary LISS Moscoso reporting Pt' family at bedside and has elected comfort care. Pt resting in bed and intubated. Pt appears comfortable with no S/S of distress. Offered therapeutic listening and answered questions. Family confirms Pt would want to focus on comfort at this stage in his life and they are ready to withdraw care. Primary LISS Moscoso premedicates Pt and assists RT with extubation. Dr Dang has already placed comfort care orders. Pt appears to pass away peacefully and comfortable. Offered condolences with family requesting [facility]. Family appears to be grieving appropriately and expresses appreciation. Palliative Care will remain available.
== END 2021-09-23 09:54 | DRG 208 ==
LOC: ER 15:04 → ICUE 19:45 → PCU 19:45 → ICUE 08-17 14:45 → PCU 08-21 08:30 → MEDS 09-08 22:10 → ICUE 09-21 04:58
PROVIDERS: Emergency Medicine; Family Medicine; Internal Medicine; Internal Medicine Critical Care Medicine; Internal Medicine Nephrology; Pharmacist; Physician Assistant; ADMIT Family Medicine
PROC: 8E0ZXY6 Isolation (ICD-10-PCS; principal; 2021-08-11)
PROC: XW033E5 Introduction of Remdesivir Anti-infective into Peripheral Vein, Percutaneous Approach, New Technology Group 5 (ICD-10-PCS; 2021-08-12)
PROC: 3E0333Z Introduction of Anti-inflammatory into Peripheral Vein, Percutaneous Approach (ICD-10-PCS; 2021-08-12)
PROC: 3E033XZ Introduction of Vasopressor into Peripheral Vein, Percutaneous Approach (ICD-10-PCS; 2021-08-12)
PROC: 5A0955A Assistance with Respiratory Ventilation, Greater than 96 Consecutive Hours, High Flow/Velocity Cannula (ICD-10-PCS; 2021-08-12)
PROC: XW0DXM6 Introduction of Baricitinib into Mouth and Pharynx, External Approach, New Technology Group 6 (ICD-10-PCS; 2021-08-19)
PROC: 5A09457 Assistance with Respiratory Ventilation, 24-96 Consecutive Hours, Continuous Positive Airway Pressure (ICD-10-PCS; 2021-08-19)
PROC: 0BH18EZ Insertion of Endotracheal Airway into Trachea, Via Natural or Artificial Opening Endoscopic (ICD-10-PCS; 2021-08-22)
PROC: 04HY32Z Insertion of Monitoring Device into Lower Artery, Percutaneous Approach (ICD-10-PCS; 2021-08-22)
PROC: 4A133B1 Monitoring of Arterial Pressure, Peripheral, Percutaneous Approach (ICD-10-PCS; 2021-08-22)
PROC: 4A133J1 Monitoring of Arterial Pulse, Peripheral, Percutaneous Approach (ICD-10-PCS; 2021-08-22)
PROC: 5A1945Z Respiratory Ventilation, 24-96 Consecutive Hours (ICD-10-PCS; 2021-08-22)
PROC: 30283B1 Transfusion of Nonautologous 4-Factor Prothrombin Complex Concentrate into Vein, Percutaneous Approach (ICD-10-PCS; 2021-09-21)
DX: U07.1 COVID-19 (principal); J12.82 Pneumonia due to coronavirus disease 2019; J96.01 Acute respiratory failure with hypoxia; N17.0 Acute kidney failure with tubular necrosis; K72.00 Acute and subacute hepatic failure without coma; J44.0 Chronic obstructive pulmonary disease with (acute) lower respiratory infection; J44.1 Chronic obstructive pulmonary disease with (acute) exacerbation; I13.0 Hypertensive heart and chronic kidney disease with heart failure and stage 1 through stage 4 chronic kidney disease, or unspecified chronic kidney disease; E87.2 Acidosis; E87.1 Hypo-osmolality and hyponatremia; I24.8 Other forms of acute ischemic heart disease; K92.1 Melena; Z51.5 Encounter for palliative care; K59.00 Constipation, unspecified; I25.10 Atherosclerotic heart disease of native coronary artery without angina pectoris; R57.8 Other shock; N18.9 Chronic kidney disease, unspecified; I50.9 Heart failure, unspecified; K21.9 Gastro-esophageal reflux disease without esophagitis; E11.65 Type 2 diabetes mellitus with hyperglycemia; J44.9 Chronic obstructive pulmonary disease, unspecified; D72.829 Elevated white blood cell count, unspecified; T38.0X5A Adverse effect of glucocorticoids and synthetic analogues, initial encounter; E87.5 Hyperkalemia; R68.2 Dry mouth, unspecified; E83.39 Other disorders of phosphorus metabolism; E66.01 Morbid (severe) obesity due to excess calories; E11.40 Type 2 diabetes mellitus with diabetic neuropathy, unspecified; G47.00 Insomnia, unspecified; R58 Hemorrhage, not elsewhere classified; T45.515A Adverse effect of anticoagulants, initial encounter; E11.22 Type 2 diabetes mellitus with diabetic chronic kidney disease; D63.1 Anemia in chronic kidney disease; I44.0 Atrioventricular block, first degree; Z68.35 Body mass index [BMI] 35.0-35.9, adult; Z95.5 Presence of coronary angioplasty implant and graft; Z87.891 Personal history of nicotine dependence; Z78.1 Physical restraint status
CPT/HCPCS: 31500; 36415; 36430; 36556; 36600; 36620; 51702; 71045; 71260; 74177; 80048; 80053; 80069; 80202; 81003; 82150; 82248; 82272; 82330; 82550; 82607; 82746; 82803; 82947; 83036; 83605; 83690; 83735; 84100; 84145; 84443; 84484; 84550; 85014; 85018; 85025; 85027; 85379; 85384; 85610; 85730; 86140; 86850; 86900; 86901; 86923; 87040; 93005; 93010; 93306; 94002; 94003; 94640; 94660; 94760; 94762; 97110; 97110-CQ; 97112; 97162; 97530; 99285-25; A9270; C1751; C9113; C9399; J0171; J0330; J0360; J0610; J1100; J1650; J1720; J1815; J1940; J2060; J2250; J2270; J2543; J2704; J3370; J7030; J7040; J7042; J7050; J7060; J7070; J7168; P9016; P9041; Q9967; U0004